=== PATIENT | female | born 1995 | race Caucasian/White ===

== ENCOUNTER 2016-07-24 17:12 | Outpatient (CLI) | payer OTHER ==
[2016-07-24] MEDS: NIFEdipine 10 MG CAPSULE PO PRN ×2 (19:17→20:17)
== END 2016-07-24 20:20 | disposition home or self-care (01) ==
DX: O47.03 False labor before 37 completed weeks of gestation, third trimester (principal); O99.89 Other specified diseases and conditions complicating pregnancy, childbirth and the puerperium; N30.10 Interstitial cystitis (chronic) without hematuria; Z3A.30 30 weeks gestation of pregnancy
CPT/HCPCS: 81001; 99214; A9270

== ENCOUNTER 2016-08-18 08:57 | Outpatient (CLI) | payer OTHER ==
[2016-08-18] MEDS ORDERED: TERBUTALINE 1 MG/ML VIAL SUBQ ONE ×2 (09:22→09:30)
[2016-08-18] MEDS ORDERED: NIFEdipine ER 30 MG TABLET PO ONE (11:00)
== END 2016-08-18 11:50 | disposition home or self-care (01) ==
DX: O23.13 Infections of bladder in pregnancy, third trimester (principal); Z3A.33 33 weeks gestation of pregnancy
CPT/HCPCS: 81001; 82731; 87086; 87797; 96372; 99214; A9270

== ENCOUNTER 2017-09-18 08:00 | Outpatient (CLI) | payer OTHER ==
[2017-09-18 19:34] LABS: BASOPHILS % (AUTO) 0.7 %; EOSINOPHILS # (AUTO) 0.3 10^3/uL (0.0-0.7); EOSINOPHILS % (AUTO) 4.7 %; MEAN CORPUSCULAR HEMOGLOBIN 33.1 pg (27.0-31.0); MEAN CORPUSCULAR HGB CONC 32.7 g/dL (32.0-36.0); MEAN CORPUSCULAR VOLUME 101.3 fL (81.0-99.0); MEAN PLATELET VOLUME 8.8 fL (7.9-10.8); MONOCYTES # (AUTO) 0.5 10^3/uL (0.0-1.0); MONOCYTES % (AUTO) 7.6 %; NEUTROPHILS # (AUTO) 3.5 10^3/uL (1.5-6.6); PLT - PLATELET COUNT 222 10^3/uL (130-450); RED BLOOD COUNT 3.92 10^6/uL (4.20-5.40); RED CELL DISTRIBUTION WIDTH 11.9 % (12.0-15.0); WHITE BLOOD COUNT 6.3 x10^3/uL (4.8-10.8)
== END 2017-09-18 08:01 | disposition home or self-care (01) ==
LOC: LAB.WCP 08:00
PROVIDERS: ATTEND Physician Assistant
DX: R53.83 Other fatigue (principal)
CPT/HCPCS: 36415; 84443; 85025

== ENCOUNTER 2017-09-30 08:30 | Outpatient (CLI) | payer OTHER ==
--- NOTE | 2017-10-01 04:03 | Ultrasound Report ---
EXAM: PELVIC ULTRASOUND EXAM DATE: 09/30/2017 08:40 AM. CLINICAL HISTORY: PELVIC PAIN, LEFT. COMPARISON: 02/24/2011. TECHNIQUE: Realtime transabdominal pelvic scan performed to identify the uterus and adnexa and as an overview of other pelvic structures, followed by transvaginal scan to provide greater detail of the u terus and adnexa, with static image documentation. FINDINGS: Uterus: 8 x 3 x 4 cm, volume 50 cc. Anteverted position. Normal overall size and echotexture. Masses: None. Endometrium: 2 mm. Normal with IUD in place. Cervix: Unremarkable. Right Ovary: Volume 8 cc. Normal echotexture and blood flow. Left Ovary: Volume 5 cc. Normal echotexture and blood flow. Free Fluid: None. Other: None. IMPRESSION: Negative pelvic ultrasound. [facility] Referring Provider Line: [phone] SITE ID: [id number]
== END 2017-09-30 08:31 | disposition home or self-care (01) ==
LOC: DI 08:30
PROVIDERS: ATTEND Physician Assistant
DX: R10.2 Pelvic and perineal pain (principal)
CPT/HCPCS: 76830; 76856

== ENCOUNTER 2017-12-22 10:41 | Outpatient (CLI) | payer OTHER ==
[2017-12-22 14:22] LABS: THYROID STIMULATING HORMONE 0.59 uIU/mL (0.34-5.60)
[2017-12-22 14:24] LABS: FREE T4 (FREE THYROXINE) 0.67 ng/dL (0.58-1.64)
== END 2017-12-22 10:42 | disposition home or self-care (01) ==
LOC: LAB 10:41
PROVIDERS: ATTEND Obstetrics & Gynecology
DX: N91.2 Amenorrhea, unspecified (principal); R68.82 Decreased libido
CPT/HCPCS: 36415; 81599; 84402; 84403; 84439; 84443; 84481; 84702; 84703

== ENCOUNTER 2018-05-01 16:30 | Outpatient (CLI) | payer OTHER | END 2018-05-01 16:31 | disposition critical access hospital (66) | LOC: EMS 16:30 | PROVIDERS: ATTEND Surgery | DX: R55 Syncope and collapse (principal); R00.2 Palpitations; R07.9 Chest pain, unspecified | CPT/HCPCS: A0425; A0429 ==

== ENCOUNTER 2018-05-01 16:50 | Emergency (ER) | payer OTHER ==
--- NOTE | 2018-05-01 17:11 | ED Physician Documentation ---
History of Present Illness - Stated complaint Stated Complaint: NEAR SYNCOPE - Chief complaint Chief Complaint: Cardiac - History obtained from History obtained from: Patient, EMS - History of Present Illness Timing: How many weeks ago (1) Pain level max: 0 Pain level now: 0 - Additonal information Additional information: Patient is a 22-year-old female who presents to the emergency department stating that she has had substernal chest pain for the past week. It is described as constant. Worse with breathing, nothing makes it better. Was seen at [facility] for the same and told to follow-up with her doctor. At her doctor's office today, she is found to be tachycardic and not feeling well so they called the ambulance to send her here. She states that she still has the pain and that nothing has helped. Denies any fevers. Does have a slight cough. She is not , breast-feeding or trying to become . 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 HEENT: None Psych: Anxiety, Panic attacks Musculoskeletal: Fatigue Derm: None - Past Surgical History Past Surgical History: Yes - Present Medications Home Medications: Ambulatory Orders Medication Instructions Recorded Confirmed Alprazolam [Alprazolam Odt] 0.25 mg PO BID PRN 11/02/12 06/21/15 Control 1 tab ORAL DAILY 03/31/13 06/21/15 buPROPion [Wellbutrin Xl] 150 mg PO DAILY 11/24/14 06/21/15 Doxycycline Hyclate 100 mg PO BID #20 capsule 05/01/18 Escitalopram [Lexapro] 05/01/18 Hydrocodone/Acetaminophen 1 - 2 each PO Q6H PRN #10 tablet 05/01/18 [Hydrocodon-Acetaminophen 5-325] Methylphenidate HCl [Ritalin] 05/01/18 - Allergies Allergies/Adverse Reactions: Allergies Allergy/AdvReac Type Severity Reaction Status Date / Time amoxicillin [Amoxicillin] Allergy Unknown UNKNOWN Verified 05/01/18 16:56 Sulfa (Sulfonamide Allergy Unknown UNKNOWN Verified 05/01/18 16:56 Antibiotics) ciprofloxacin Allergy Hives Verified 05/01/18 16:56 - Social History Does the pt smoke?: No Smoking Status: Never smoker Does the pt drink ETOH?: No Does the pt have substance abuse?: No - Immunizations Immunizations are current?: Yes - POLST Patient has POLST: No PD ED PE NORMAL - Vitals Vital signs reviewed: Yes - General General: Alert and oriented X 3, No acute distress - HEENT HEENT: Ears normal, Moist mucous membranes, Pharynx benign - Neck Neck: Supple, no meningeal sign - Cardiac Cardiac: RRR, No murmur, No gallop, No rub, Strong equal pulses - Respiratory Respiratory: No respiratory distress, Clear bilaterally - Abdomen Abdomen: Soft, Non tender, Non distended - Back Back: No spinal TTP - Derm Derm: Warm and dry - Extremities Extremities: No edema, No calf tenderness / cord - Neuro Neuro: Alert and oriented X 3 Results - Vitals Vitals: Vital Signs - 24 hr 05/01/18 05/01/18 05/01/18 16:50 18:00 18:59 Temperature 37.2 C Heart Rate 110 H 121 H 114 H Respiratory 18 17 18 Rate Blood Pressure 151/101 H 144/87 H 150/102 H O2 Saturation 100 100 100 05/01/18 19:08 Temperature 36.9 C Heart Rate Respiratory Rate Blood Pressure O2 Saturation Oxygen O2 Source Room air - EKG (time done) 1701 Rate: Rate (enter#) (117) Rhythm: Sinus tachycardia [place]: Normal Intervals: Normal [place] QRS: Normal Ischemia: Normal ST segments - Labs Labs: Laboratory Tests 05/01/18 05/01/18 05/01/18 15:14 15:14 15:14 WBC 7.1 RBC 3.91 L Hgb 13.2 Hct 38.4 MCV 98.3 MCH 33.7 H MCHC 34.3 RDW 12.1 Plt Count 282 MPV 8.0 Neut # (Auto) 4.3 Lymph # (Auto) 2.2 [place] # (Auto) 0.5 Eos # (Auto) 0.1 Baso # (Auto) 0.1 Absolute Nucleated RBC 0.01 Nucleated RBC % 0.1 Sodium 135 Potassium 3.5 Chloride 103 Carbon Dioxide 22 Anion Gap 10.0 BUN 14 Creatinine 0.6 Estimated GFR (MDRD) 126 Glucose 93 Calcium 9.3 Total Bilirubin 0.4 AST 23 ALT 24 Alkaline Phosphatase 87 Troponin I < 0.04 Total Protein 8.1 Albumin 4.3 Globulin 3.8 Albumin/Globulin Ratio 1.1 Lipase 32 Urine Color Urine Clarity Urine pH Ur Specific [place] Urine Protein Urine Glucose (UA) Urine Ketones Urine Occult Blood Urine Nitrite Urine Bilirubin Urine Urobilinogen Ur Leukocyte Esterase Ur Microscopic Review Urine Culture Comments Urine HCG, Qual 05/01/18 19:10 WBC RBC Hgb Hct MCV MCH MCHC RDW Plt Count MPV Neut # (Auto) Lymph # (Auto) [place] # (Auto) Eos # (Auto) Baso # (Auto) Absolute Nucleated RBC Nucleated RBC % Sodium Potassium Chloride Carbon Dioxide Anion Gap BUN Creatinine Estimated GFR (MDRD) Glucose Calcium Total Bilirubin AST ALT Alkaline Phosphatase Troponin I Total Protein Albumin Globulin Albumin/Globulin Ratio Lipase Urine Color YELLOW Urine Clarity CLEAR Urine pH 7.0 Ur Specific [place] 1.010 Urine Protein NEGATIVE Urine Glucose (UA) NEGATIVE Urine Ketones NEGATIVE Urine Occult Blood NEGATIVE Urine Nitrite NEGATIVE Urine Bilirubin NEGATIVE Urine Urobilinogen 0.2 (NORMAL) Ur Leukocyte Esterase NEGATIVE Ur Microscopic Review NOT INDICATED Urine Culture Comments NOT INDICATED Urine HCG, Qual NEGATIVE - Rads (name of study) CT pulmonary angiogram Radiology: Prelim report reviewed, EMP read contemporaneously, See rad report (Negative for pulmonary embolism. Unremarkable aorta. Right middle lobe infiltrate) PD MEDICAL DECISION MAKING - ED course Complexity details: reviewed results, re-evaluated patient, considered differential, d/w patient, d/w family ED course: Patient is a 22-year-old female who presents to the emergency department with chest pain for the past week. She has been worked up for cardiac issues at [facility] Last week. Given her unexplained tachycardia and continued chest pain, CT pulmonary angiogram was undertaken which reveals a right middle lobe infiltrate that was not visible on prior chest x-rays. Will place her on antibiotics and follow-up with her doctor. She is well-appearing, nontoxic. Afebrile. No hypoxia. No respiratory distress. Patient and family counseled regarding signs and symptoms for which I believe and urgent re-evaluation would be necessary. Patient with good understanding of and agreement to plan and is comfortable going home at this time This document was made in part using voice recognition software. While efforts are made to proofread this document, sound alike and grammatical errors may occur. Departure - Departure Disposition: 01 Home, Self Care Clinical Impression: Pneumonia Qualifiers: Pneumonia type: due to unspecified organism Laterality: right Lung location: middle lobe of lung Qualified Code(s): J18.1 - Lobar pneumonia, unspecified organism Condition: Good Instructions: ED Pneumonia Adult Follow-Up: Isela Celestin PA [Primary Care Provider] - Within 1 week Prescriptions: Doxycycline Hyclate 100 mg PO BID #20 capsule Hydrocodone/Acetaminophen [Hydrocodon-Acetaminophen 5-325] 1 - 2 each PO Q6H PRN #10 tablet PRN Reason: pain Comments: Return if you worsen. take all anitbiotics until gone. Do not drink alcohol or drive while on narcotic pain medicine. Note that many narcotic pain relievers also contain tylenol/acetaminophen. Please ensure that your total dose of acetaminophen from all sources does not exceed 3 grams (3000mg) per day. You may constipated on this medication, take a stool softener such as "Colace" twice a day while you are on it. Also recommend a qiji-awd-sxjgegm laxative such as senna or MiraLAX any day that you do not have a bowel movement. If you received narcotic pain medication in the emergency department, do not drive or operate machinery for the next 24 hours. Discharge Date/Time: 05/01/18 19:21
[2018-05-01 17:24] LABS: BASOPHILS # (AUTO) 0.1 10^3/uL (0.0-0.1); BASOPHILS % (AUTO) 0.7 %; EOSINOPHILS # (AUTO) 0.1 10^3/uL (0.0-0.7); EOSINOPHILS % (AUTO) 1.5 %; HGB - HEMOGLOBIN 13.2 g/dL (12.0-16.0); LYMPHOCYTES # (AUTO) 2.2 10^3/uL (1.5-3.5); LYMPHOCYTES % (AUTO) 30.7 %; MEAN CORPUSCULAR HEMOGLOBIN 33.7 pg (27.0-31.0); MEAN CORPUSCULAR HGB CONC 34.3 g/dL (32.0-36.0); MEAN CORPUSCULAR VOLUME 98.3 fL (81.0-99.0); MONOCYTES # (AUTO) 0.5 10^3/uL (0.0-1.0); MONOCYTES % (AUTO) 6.8 %; NEUTROPHILS # (AUTO) 4.3 10^3/uL (1.5-6.6); NEUTROPHILS % (AUTO) 60.3 %; PLT - PLATELET COUNT 282 10^3/uL (130-450); RED BLOOD COUNT 3.91 10^6/uL (4.20-5.40); RED CELL DISTRIBUTION WIDTH 12.1 % (12.0-15.0); WHITE BLOOD COUNT 7.1 x10^3/uL (4.8-10.8)
[2018-05-01] MEDS ORDERED: IOPAMIDOL-300 100 ML VIAL ONE (17:27)
[2018-05-01 17:31] LABS: ALBUMIN 4.3 g/dL (3.2-5.5); ALBUMIN/GLOBULIN RATIO 1.1 (1.0-2.2); BILIRUBIN,TOTAL 0.4 mg/dL (0.2-1.0); CALCIUM 9.3 mg/dL (8.5-10.3); CREATININE 0.6 mg/dL (0.4-1.0); TOTAL PROTEIN 8.1 g/dL (6.7-8.2)
[2018-05-01] MEDS ORDERED: IOPAMIDOL-300 100 ML VIAL IVP ONE (18:10)
--- NOTE | 2018-05-01 18:22 | CT Report ---
Reason: chest pain, tachycardia Procedure Date: 05/01/2018 Accession Number: [id number] / [id number] Procedure: CT - Chest Angio (PE) CPT Code: FULL RESULT: EXAM: CT ANGIOGRAM CHEST EXAM DATE: 05/01/2018 06:05 PM. CLINICAL HISTORY: Chest pain, tachycardia. COMPARISON: None. TECHNIQUE: Routine helical imaging was performed through the chest in the pulmonary arterial phase. IV Contrast: 80 ML ISOVUE 300. Reconstructions: Sagittal, coronal, and 3D MIP. In accordance with CT protocol optimization, one or more of the following dose reduction techniques were utilized for this exam: automated exposure control, adjustment of mA and/or KV based on patient size, or use of iterative reconstructive technique. FINDINGS: Pulmonary Arteries: Diagnostic quality: Adequate through the segmental arteries. No evidence for acute or chronic pulmonary emboli. RV/LV is within normal limits. There is no interventricular septal bowing. There is no reflux of contrast material in the IVC. Lungs/Pleura: Patchy somewhat nodular infiltration in the right middle lobe with associated bronchiectasis and mild peribronchial thickening. Otherwise clear. No consolidation, effusion, or pneumothorax. Mediastinum: Normal heart size. No pericardial effusion. No coronary artery calcifications. No lymphadenopathy. Thoracic Aorta: Unremarkable. Upper Abdomen: Unremarkable. Other: None. IMPRESSION: 1. Negative for pulmonary embolism at this time. Unremarkable aorta. 2. Right middle lobe infiltrate. [facility]
[2018-05-01] MEDS ORDERED: DOXYCYCLINE 100 MG TABLET PO STA (18:44)
[2018-05-01] MEDS ORDERED: HYDROcod/ACETAM 5/325 MG TABLET PO STA (18:52)
[2018-05-01 19:01] VITALS: BP 150/102
[2018-05-01 19:21] LABS: BILIRUBIN,URINE NEGATIVE (NEGATIVE); GLUCOSE, URINE (UA) NEGATIVE (NEGATIVE); KETONES,URINE (UA) NEGATIVE (NEGATIVE); LEUKOCYTE ESTERASE, URINE NEGATIVE (NEGATIVE); NITRITE,URINE NEGATIVE (NEGATIVE); OCCULT BLOOD,URINE NEGATIVE (NEGATIVE); PROTEIN,URINE NEGATIVE (NEGATIVE); UROBILINOGEN,URINE 0.2 (NORMAL) E.U./dL (NORMAL)
[2018-05-01 19:26] LABS: CLARITY,URINE CLEAR (CLEAR); HCG UR QUAL NEGATIVE
== END 2018-05-01 19:21 | disposition home or self-care (01) ==
LOC: EDUNIT# → ED 16:50
DX: J18.1 Lobar pneumonia, unspecified organism (principal)
CPT/HCPCS: 36415; 71275; 80053; 81003; 81025; 83690; 84484; 85025; 93005; 99283; 99284; A9270; Q9967; 81001; 87086

== ENCOUNTER 2018-07-05 12:45 | Emergency (ER) | payer OTHER ==
[2018-07-05 13:22] LABS: BASOPHILS % (AUTO) 0.4 %; EOSINOPHILS # (AUTO) 0.1 10^3/uL (0.0-0.7); EOSINOPHILS % (AUTO) 0.7 %; HGB - HEMOGLOBIN 13.3 g/dL (12.0-16.0); LYMPHOCYTES # (AUTO) 1.8 10^3/uL (1.5-3.5); LYMPHOCYTES % (AUTO) 24.2 %; MEAN CORPUSCULAR HEMOGLOBIN 34.4 pg (27.0-31.0); MEAN CORPUSCULAR HGB CONC 34.6 g/dL (32.0-36.0); MEAN CORPUSCULAR VOLUME 99.4 fL (81.0-99.0); MEAN PLATELET VOLUME 7.8 fL (7.9-10.8); MONOCYTES # (AUTO) 0.4 10^3/uL (0.0-1.0); MONOCYTES % (AUTO) 4.8 %; NEUTROPHILS # (AUTO) 5.3 10^3/uL (1.5-6.6); NEUTROPHILS % (AUTO) 69.9 %; PLT - PLATELET COUNT 294 10^3/uL (130-450); RED BLOOD COUNT 3.88 10^6/uL (4.20-5.40); RED CELL DISTRIBUTION WIDTH 12.9 % (12.0-15.0); WHITE BLOOD COUNT 7.5 x10^3/uL (4.8-10.8)
[2018-07-05 13:37] LABS: ALBUMIN 4.6 g/dL (3.2-5.5); ALBUMIN/GLOBULIN RATIO 1.2 (1.0-2.2); BILIRUBIN,TOTAL 0.9 mg/dL (0.2-1.0); CALCIUM 9.6 mg/dL (8.5-10.3); CREATININE 0.5 mg/dL (0.4-1.0); TOTAL PROTEIN 8.3 g/dL (6.7-8.2)
[2018-07-05 14:56] LABS: HCG,QUALITATIVE BLOOD NEGATIVE
[2018-07-05] MEDS ORDERED: IBUPROFEN 400 MG TABLET PO STA (15:05)
[2018-07-05] MEDS ORDERED: oxyCODONE 5 MG TABLET PO STA ×2 (15:05→16:38)
[2018-07-05] MEDS ORDERED: LORazepam 0.5 MG TABLET PO STA (15:08)
--- NOTE | 2018-07-05 15:09 | ED Physician Documentation ---
History of Present Illness - Stated complaint Stated Complaint: FEMALE /BLEEDING - Chief complaint Chief Complaint: Abd Pain - Additonal information Additional information: hx from pt 23 f on OCP (on this one for a year) 10 days of havy vag bleed - changing tampon and pad q1h pelvic pain no injury - did not start during intercourse no fever Review of Systems Constitutional: denies: Fever, Chills Cardiac: denies: Chest pain / pressure Respiratory: denies: Dyspnea : reports: Vaginal bleeding Endocrine: denies: Easy bruising / bleeding Immunocompromised: denies: Immunocompromised PD PAST MEDICAL HISTORY - Past Medical History Cardiovascular: None Respiratory: None Endocrine/Autoimmune: None GI: None 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 HEENT: None Psych: Anxiety, Panic attacks Musculoskeletal: Fatigue Derm: None - Past Surgical History Past Surgical History: Yes - Present Medications Home Medications: Ambulatory Orders Medication Instructions Recorded Confirmed Alprazolam [Alprazolam Odt] 0.25 mg PO BID PRN 11/02/12 06/21/15 Control 1 tab ORAL DAILY 03/31/13 06/21/15 buPROPion [Wellbutrin Xl] 150 mg PO DAILY 11/24/14 06/21/15 Escitalopram [Lexapro] 05/01/18 Methylphenidate HCl [Ritalin] 05/01/18 Cyclobenzaprine [Flexeril] 10 mg PO TID PRN #20 tablet 07/05/18 Indomethacin [Indocin] 25 mg PO TIDWM PRN #21 capsule 07/05/18 - Allergies Allergies/Adverse Reactions: Allergies Allergy/AdvReac Type Severity Reaction Status Date / Time amoxicillin [Amoxicillin] Allergy Unknown UNKNOWN Verified 05/01/18 16:56 Sulfa (Sulfonamide Allergy Unknown UNKNOWN Verified 05/01/18 16:56 Antibiotics) ciprofloxacin Allergy Hives Verified 05/01/18 16:56 - Social History Does the pt smoke?: No Smoking Status: Never smoker Does the pt drink ETOH?: No Does the pt have substance abuse?: No - Immunizations Immunizations are current?: Yes - POLST Patient has POLST: No PD ED PE NORMAL - Vitals Vital signs reviewed: Yes - Neck Neck: Supple, no meningeal sign - Cardiac Cardiac: RRR - Respiratory Respiratory: No respiratory distress - Abdomen Abdomen: Soft, Other (mod TTP suprapubic) - Female 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[place]), Other (no external lesion, no discharge, dark blood from os, no discharge, no FB, unabkle to tolerate bimanual despite pain meds) Results - Vitals Vitals: Vital Signs - 24 hr 07/05/18 12:57 Temperature 36.3 C L Heart Rate 110 H Respiratory 16 Rate Blood Pressure 151/95 H O2 Saturation 100 Oxygen O2 Source Room air - Labs Labs: Laboratory Tests 07/05/18 07/05/18 07/05/18 13:17 13:17 13:17 WBC 7.5 RBC 3.88 L Hgb 13.3 Hct 38.5 MCV 99.4 H MCH 34.4 H MCHC 34.6 RDW 12.9 Plt Count 294 MPV 7.8 L Neut # (Auto) 5.3 Lymph # (Auto) 1.8 [place] # (Auto) 0.4 Eos # (Auto) 0.1 Baso # (Auto) 0.0 Absolute Nucleated RBC 0.00 Nucleated RBC % 0.0 Sodium 133 L Potassium 3.7 Chloride 100 L Carbon Dioxide 24 Anion Gap 9.0 BUN 10 Creatinine 0.5 Estimated GFR (MDRD) 154 Glucose 108 H Calcium 9.6 Total Bilirubin 0.9 AST 29 ALT 30 Alkaline Phosphatase 76 Total Protein 8.3 H Albumin 4.6 Globulin 3.7 Albumin/Globulin Ratio 1.2 Lipase 34 Serum HCG, Qual NEGATIVE - Rads (name of study) pelvic ultrasound Radiology: See rad report (nl ovaries, no mass, complex fluid collection in uterus - per rad compatible with hx of current bleeding) PD MEDICAL DECISION MAKING - ED course ED course: not - on OCP and neg HCG no masses on sono oin injury / vag lac dark blood from os on exam endometrtial blood otherwsie nl sono nl VS and labs will dc on NSAIDs with ROVING 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 fup - if continues might need endometrial biopsy or high dose OCPs etc but for tonight think safe to dc home Departure - Departure Disposition: 01 Home, Self Care Clinical Impression: Dysfunctional uterine bleeding Condition: Good Instructions: ED Bleed Irregular Vaginal Follow-Up: Arlyn Pack DO [Provider Admit Priv/Credential] - Prescriptions: Cyclobenzaprine [Flexeril] 10 mg PO TID PRN #20 tablet PRN Reason: Spasms Indomethacin [Indocin] 25 mg PO TIDWM PRN #21 capsule PRN Reason: Pain Comments: The test was negative Your blood count is fine - you have not lost too much blood The ultrasound shows blood in the endometrial cavity but no tumors or fibroids The exam did not suggest an infection but cultures are running and the ER staff will call you if antibiotics are needed I think it is safe for you to go home. I recommend indocin or the pain Can also try a muscle relaxant such as flexeril for uterine cramping Please call Dr Pack tomorrow for follow up. If the symptoms do not subside with the indocin you may need to take high dose control pills or have an endometrial biopsy. Forms: Activity restrictions
[2018-07-05] MEDS ORDERED: PROMETHAZINE 25 MG TABLET PO STA ×2 (15:18→16:38)
--- NOTE | 2018-07-05 19:21 | Ultrasound Report ---
Reason: PELVIC PAIN, BLEEDING Procedure Date: 07/05/2018 Accession Number: [id number] / [id number] Procedure: US - Pelvic w/Doppler Complete CPT Code: FULL RESULT: EXAM: PELVIC ULTRASOUND EXAM DATE: 07/05/2018 06:55 PM. CLINICAL HISTORY: PELVIC PAIN, BLEEDING. COMPARISON: None. TECHNIQUE: Realtime transabdominal pelvic scan performed to identify the uterus and adnexa and as an overview of other pelvic structures, with static image documentation. FINDINGS: Uterus: 6.1 x 5.1 x 3.9 cm, volume 63.1 cc. Anteverted position. Normal overall size and echotexture. Masses: None. Endometrium: 10.4 mm. Complex fluid collection in the endometrial cavity measuring about 2.0 x 1.8 x 1.0 cm. Cervix: Unremarkable. Right Ovary: 2.8 x 2.0 x 1.4 cm, volume 4.1 cc. Normal echotexture and blood flow. Left Ovary: 2.7 x 2.0 x 1.2 cm, volume 3.4 cc. Normal echotexture and blood flow. Free Fluid: None. Other: None. IMPRESSION: Endometrial findings compatible with current bleeding. Otherwise unremarkable. [facility]
[2018-07-05 20:00] VITALS: BP 140/90
== END 2018-07-05 20:00 | disposition home or self-care (01) ==
LOC: ED 12:45
DX: N93.8 Other specified abnormal uterine and vaginal bleeding (principal)
CPT/HCPCS: 36415; 76856; 80053; 83690; 84703; 85025; 87491; 87591; 93975; 99283; A9270; Q0169; 81025

== ENCOUNTER 2018-08-13 11:23 | Outpatient (CLI) | payer OTHER ==
[2018-08-13 19:04] LABS: BASOPHILS % (AUTO) 0.6 %; EOSINOPHILS # (AUTO) 0.1 10^3/uL (0.0-0.7); EOSINOPHILS % (AUTO) 1.9 %; HGB - HEMOGLOBIN 13.3 g/dL (12.0-16.0); LYMPHOCYTES % (AUTO) 30.9 %; MEAN CORPUSCULAR HEMOGLOBIN 34.2 pg (27.0-31.0); MEAN CORPUSCULAR HGB CONC 32.6 g/dL (32.0-36.0); MEAN CORPUSCULAR VOLUME 105.1 fL (81.0-99.0); MEAN PLATELET VOLUME 8.3 fL (7.9-10.8); MONOCYTES # (AUTO) 0.3 10^3/uL (0.0-1.0); MONOCYTES % (AUTO) 5.1 %; NEUTROPHILS % (AUTO) 61.5 %; PLT - PLATELET COUNT 271 10^3/uL (130-450); RED CELL DISTRIBUTION WIDTH 12.3 % (12.0-15.0); WHITE BLOOD COUNT 6.5 x10^3/uL (4.8-10.8)
== END 2018-08-13 23:59 | disposition home or self-care (01) ==
LOC: LAB.N 11:23
PROVIDERS: ATTEND Obstetrics & Gynecology
DX: Z01.818 Encounter for other preprocedural examination (principal)
CPT/HCPCS: 36415; 81025; 85025

== ENCOUNTER 2018-08-15 08:58 | Day surgery (SDC) | payer OTHER ==
[2018-08-15 09:13] LABS: HCG UR QUAL NEGATIVE
[2018-08-15] MEDS ORDERED: CLINDAMYCIN 600 MG/50 ML 50 ML IV ONE (09:25)
[2018-08-15] MEDS ORDERED: CELECOXIB 100 MG CAPSULE PO ONE (09:25)
[2018-08-15] MEDS ORDERED: LACTATED RINGERS 1,000 ML IV ONE (09:31)
--- NOTE | 2018-08-15 09:39 | ANESTHESIA PROCEDURE NOTE ---
Diagnosis: anxiety Procedure: IUD insertion, pap smear Height and Weight: Height 5 ft 3 in Weight (kg) 49.1 kg Body Mass Index 22.6 Vital Signs: Temp Pulse Resp BP Pulse Ox 36.6 C 62 20 100 08/15/18 09:02 08/15/18 09:02 08/15/18 09:02 08/15/18 09:02 Allergies Sulfa (Sulfonamide Antibiotics) Allergy (Unknown, Verified 08/01/18 11:02) Hives ciprofloxacin Allergy (Verified 05/01/18 16:56) Hives
--- NOTE | 2018-08-15 09:42 | ANESTHESIA ---
Pre-Anesthesia VS, & Labs - Diagnosis anxiety - Procedure IUD insertion, pap smear Vital Signs: Temp Pulse Resp BP Pulse Ox 36.6 C 62 20 100 08/15/18 09:02 08/15/18 09:02 08/15/18 09:02 08/15/18 09:02 Height 5 ft 3 in Weight (kg) 49.1 kg Body Mass Index 22.6 - NPO >8 hours - Is Patient ?: No Home Medications and Allergies Home Medications: Ambulatory Orders Levonorgestrel-Ethin Estradiol [Vienva-28 Tablet] 1 each PO DAILY 08/01/18 Alprazolam [Alprazolam Odt] 0.5 mg PO BID PRN 11/02/12 buPROPion [Wellbutrin Xl] 200 mg PO DAILY 11/24/14 Methylphenidate HCl [Ritalin] 5 mg PO TID PRN 05/01/18 Levonorgestrel-Ethin Estradiol [Vienva-28 Tablet] 1 each PO DAILY 08/01/18 Allergies/Adverse Reactions: Allergies Allergy/AdvReac Type Severity Reaction Status Date / Time Sulfa (Sulfonamide Allergy Unknown Hives Verified 08/01/18 11:02 Antibiotics) ciprofloxacin Allergy Hives Verified 05/01/18 16:56 Anes History & Medical History - Anesthetic History Anesthesia Complications: reports: No previous complications - Medical History Cardiovascular: reports: None Pulmonary: reports: None Gastrointestinal: reports: None, Other Urinary: reports: None Musculoskeletal: reports: None Endocrine/Autoimmune: reports: None Blood Disorders: reports: None Skin: reports: None Smoking Status: Never smoker - Surgical History General: Colonoscopy, EGD Gynecologic: Other (diagnostic laparoscopy) Exam General: Alert Dental: WNL Mouth Opening: Greater than 4 Fingerbreadths Neck Mobility: Normal Mallampati classification: I Thyromental Distance: greater than 6 cm Respiratory: Lungs clear Cardiovascular: Regular rate, Normal S1, Normal S2 Plan Anesthesia Type: MAC Consent for Procedure(s) Verified and Reviewed: Yes Code Status: Attempt Resuscitation ASA classification: 1-Healthy patient Is this case an emergency?: No
[2018-08-15] MEDS ORDERED: BUPIVACAINE 0.25%-EPI 1:200000 PF 30 ML VIAL ONE (11:44)
[2018-08-15] MEDS ORDERED: BUPIVACAINE 0.25%-EPI 1:200000 PF 30 ML VIAL SUBQ ONE (12:00)
[2018-08-15] MEDS ORDERED: KETOROLAC 30 MG/ML VIAL IVP ONE (12:17)
[2018-08-15] MEDS ORDERED: ONDANSETRON 4 MG/2 ML VIAL IVP ONE (12:17)
[2018-08-15] MEDS ORDERED: PROPOFOL 1000 MG/100 ML IV ONE (12:17)
[2018-08-15] MEDS ORDERED: MIDAZOLAM 2 MG/2 ML VIAL IVP ONE (12:17)
[2018-08-15] MEDS ORDERED: LORazepam 2 MG/ML VIAL IVP PRN (12:23)
[2018-08-15] MEDS ORDERED: LEVONORGESTREL 1 EACH IUD IY ONE (12:23)
[2018-08-15] MEDS ORDERED: HYDROmorphone 0.5 MG/0.5 ML SYRINGE IVP PRN (12:23)
[2018-08-15] MEDS ORDERED: HYDROcod/ACETAM 10 MG/325 MG TABLET PO PRN (12:23)
[2018-08-15] MEDS ORDERED: ONDANSETRON 4 MG/2 ML VIAL IVP PRN (12:23)
[2018-08-15] MEDS ORDERED: HYDROcod/ACETAM 5/325 MG TABLET ONE (12:24)
--- NOTE | 2018-08-15 12:26 | OPERATIVE REPORT ---
Operative Report - General Procedure Date: 08/15/18 Planned Procedure: Pap, Mirena Placement Pre-Op Diagnosis: Sever Anxiouity, Contraception, needs pap. Procedure Performed: Pap, Mirena Placement Post Op Diagnosis: Same - Procedure Note Primary Surgeon: Emery Burr MD Anesthesia Provider: Nadeem Piña Anesthesia Technique: MAC, Other (Para cervical) Pathology: Pap smear IV Fluids (mL): 800 Estimated Blood Loss (mL): 0 Urine Output (mL): 0
[2018-08-15 12:52] VITALS: BP 123/79
--- NOTE | 2018-08-15 15:22 | PROCEDURE REPORT ---
DATE OF SERVICE: 08/15/2018 Physician: Emery Burr MD PREOPERATIVE DIAGNOSES 1. Severe anxiety. 2. Contraception. 3. Need for Pap smear. POSTOPERATIVE DIAGNOSES 1. Severe anxiety. 2. Contraception. 3. Need for Pap smear. PROCEDURES PERFORMED: Pap smear and placement of Mirena IUD. SURGEON: Emery Burr MD ANESTHESIA: IV sedation with paracervical block with Bethany Winkler CRNA PATHOLOGY: Pap smear. IV FLUIDS: 800 mL. ESTIMATED BLOOD LOSS: Zero. URINE OUTPUT: Zero. FINDINGS: Cervix resides high in the pelvic canal. The uterus was anteverted. It sounded to 8 cm. The ovaries appeared to be not enlarged. There was an area at the apex of the vagina, which showed some narrowing. PROCEDURE: Patient was anesthetized, placed in Efra stirrups. At this point, a timeout was performed. Patient was identified. Her concerns were addressed. A pelvic examination revealed the uterus was anterior, which was roughly 8-10 cm in size. At this point, a speculum was placed in the vagina, cervix visualized, Pap smear obtained. The cervix was then prepped with Betadine, and following this, a paracervical block was accomplished with a total of 10 mL of 0.25% Marcaine at both the left and right hand side. At this time, the uterus was sounded and noted to be anterior 8 cm in depth. The IUD was then set and placed without difficulty. Strings were trimmed a little bit long at 4 cm. The procedure was then terminated. Patient tolerated the procedure well and was taken to recovery in stable condition. Sponge and needle counts were correct. TD: 08/15/2018 14:07 [facility]
== END 2018-08-15 08:59 | disposition home or self-care (01) ==
LOC: SDS 08:58
PROVIDERS: ATTEND Obstetrics & Gynecology
PROC: 0UH97HZ Insertion of Contraceptive Device into Uterus, Via Natural or Artificial Opening (ICD-10-PCS; principal; 2018-08-15 10:00)
DX: Z30.430 Encounter for insertion of intrauterine contraceptive device (principal); Z12.4 Encounter for screening for malignant neoplasm of cervix; F41.9 Anxiety disorder, unspecified; R87.619 Unspecified abnormal cytological findings in specimens from cervix uteri
CPT/HCPCS: 58300; 81025; A9270; J7120; J7298

== ENCOUNTER 2018-09-05 21:09 | Emergency (ER) | payer OTHER ==
--- NOTE | 2018-09-05 21:26 | ED Physician Documentation ---
PD HPI CHEST PAIN - Stated complaint Stated Complaint: CP/NAUSEA - Chief complaint Chief Complaint: Cardiac - History obtained from History obtained from: Patient - History of Present Illness Timing - onset: Enter time (17:00), Today Timing - onset during: Light activity Timing - details: Abrupt onset Pain level now: 7 Quality: Pain Location: Right chest Radiation: Neck Improved by: Nothing Worsened by: Inspiration Associated symptoms: Cough (mild, nonproductive cough). No: Shortness of air, Diaphoresis, Nausea, Vomiting, Feeling faint / dizzy, General Weakness, Palpitations Similar symptoms before: Diagnosis (similar episode few months ago, diagnosed with pneumonia (was only visualized on CT, not CXR)) Recently seen: Not recently seen Review of Systems Constitutional: denies: Fever, Chills, Sweats Cardiac: reports: Chest pain / pressure. denies: Palpitations Respiratory: reports: Cough. 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 HEENT: Chronic vision loss Psych: Anxiety, Panic attacks Musculoskeletal: None Derm: None - Past Surgical History Past Surgical History: Yes General: Colonoscopy, EGD /ORACLE BUSINESS ANALYST: Other (diagnostic laparoscopy) - Present Medications Home Medications: Ambulatory Orders Medication Instructions Recorded Confirmed Alprazolam [Alprazolam Odt] 0.5 mg PO DAILY 11/02/12 09/05/18 buPROPion [Wellbutrin Xl] 200 mg PO DAILY 11/24/14 09/05/18 Methylphenidate HCl [Ritalin] 5 mg PO BID 05/01/18 09/05/18 Amox/Clav 875/125 [Augmentin 1 tab ORAL BID 09/05/18 09/05/18 875/125] Azithromycin [Zithromax] 250 mg PO DAILY #4 tablet 09/05/18 Estradiol 1 mg ORAL DAILY 09/05/18 09/05/18 - Allergies Allergies/Adverse Reactions: Allergies Allergy/AdvReac Type Severity Reaction Status Date / Time Sulfa (Sulfonamide Allergy Unknown Hives Verified 09/05/18 21:20 Antibiotics) ciprofloxacin Allergy Hives Verified 09/05/18 21:20 - Social History Does the pt smoke?: No Smoking Status: Never smoker Does the pt drink ETOH?: No Does the pt have substance abuse?: No - Immunizations Immunizations are current?: Yes - POLST Patient has POLST: No PD ED PE NORMAL - Vitals Vital signs reviewed: Yes - General General: Alert and oriented X 3, No acute distress, Well developed/nourished - HEENT HEENT: Moist mucous membranes - Cardiac Cardiac: No murmur, No gallop, No rub - Respiratory Respiratory: No respiratory distress, Clear bilaterally - Abdomen Abdomen: Soft, Non tender - Extremities Extremities: No edema PD ED PE EXPANDED - Cardiac Cardiac: Tachy Results - Vitals Vitals: Vital Signs - 24 hr 09/05/18 09/05/18 09/05/18 21:13 22:08 23:07 Temperature 36.4 C L Heart Rate 119 H 102 H 104 H Respiratory 16 18 16 Rate Blood Pressure 146/94 H 147/97 H 149/92 H O2 Saturation 100 100 100 09/05/18 23:59 Temperature 36.4 C L Heart Rate 89 Respiratory 18 Rate Blood Pressure 145/92 H O2 Saturation 99 Oxygen O2 Source Room air - EKG (time done) No standard instances Rate: Rate (enter#) (97) Rhythm: NSR [place]: Normal Intervals: Normal HI QRS: Normal Ischemia: Normal ST segments - Labs Labs: Laboratory Tests 09/05/18 09/05/18 09/05/18 21:40 21:40 21:40 WBC 6.4 RBC 4.06 L Hgb 14.0 Hct 40.5 MCV 99.9 H MCH 34.5 H MCHC 34.6 RDW 11.8 L Plt Count 248 MPV 7.9 Neut # (Auto) 3.0 Lymph # (Auto) 2.7 Major # (Auto) 0.4 Eos # (Auto) 0.2 Baso # (Auto) 0.0 Absolute Nucleated RBC 0.01 Nucleated RBC % 0.1 D-Dimer Sodium 137 Potassium 3.8 Chloride 101 Carbon Dioxide 25 Anion Gap 11.0 BUN 14 Creatinine 0.7 Estimated GFR (MDRD) 105 Glucose 89 Calcium 9.7 Troponin I < 0.04 09/05/18 21:40 WBC RBC Hgb Hct MCV MCH MCHC RDW Plt Count MPV Neut # (Auto) Lymph # (Auto) Major # (Auto) Eos # (Auto) Baso # (Auto) Absolute Nucleated RBC Nucleated RBC % D-Dimer < 200.0 L Sodium Potassium Chloride Carbon Dioxide Anion Gap BUN Creatinine Estimated GFR (MDRD) Glucose Calcium Troponin I - Rads (name of study) chest xray Radiology: Prelim report reviewed, See rad report PD MEDICAL DECISION MAKING - ED course Complexity details: reviewed old records, reviewed results, re-evaluated patient, considered differential, d/w patient ED course: Unremarkable w/u. Patient feels symptoms are similar to when she was diagnosed with pneumonia in April 2018; I reviewed the ED note (was actually 05/01) and it reflects right middle lobe infiltrate was seen on CT despite previously normal chest xray. While she lacks fever, cough, shortness of breath, her presentation is c/w pleurisy and early pneumonia could be a potential cause. She is already on augmentin for sinusitis (has had 5 days of this so far), and thus I recommended she discontinue the augmentin and start azithromycin (will provide good coverage for bacterial sinusitis as well as CAP). Departure - Departure Disposition: 01 Home, Self Care Clinical Impression: Pleurisy Condition: Good Instructions: ED Chest Pain Pleurisy Follow-Up: Isela Celestin PA [Primary Care Provider] - (2-3 days) Prescriptions: Azithromycin [Zithromax] 250 mg PO DAILY #4 tablet Discharge Date/Time: 09/06/18 00:07
[2018-09-05] MEDS ORDERED: KETOROLAC 30 MG/ML VIAL IVP STA (21:56)
[2018-09-05 22:06] LABS: BASOPHILS % (AUTO) 0.7 %; EOSINOPHILS # (AUTO) 0.2 10^3/uL (0.0-0.7); EOSINOPHILS % (AUTO) 2.8 %; LYMPHOCYTES # (AUTO) 2.7 10^3/uL (1.5-3.5); MEAN CORPUSCULAR HEMOGLOBIN 34.5 pg (27.0-31.0); MEAN CORPUSCULAR HGB CONC 34.6 g/dL (32.0-36.0); MEAN CORPUSCULAR VOLUME 99.9 fL (81.0-99.0); MEAN PLATELET VOLUME 7.9 fL (7.9-10.8); MONOCYTES # (AUTO) 0.4 10^3/uL (0.0-1.0); MONOCYTES % (AUTO) 5.9 %; NEUTROPHILS % (AUTO) 47.6 %; PLT - PLATELET COUNT 248 10^3/uL (130-450); RED BLOOD COUNT 4.06 10^6/uL (4.20-5.40); RED CELL DISTRIBUTION WIDTH 11.8 % (12.0-15.0); WHITE BLOOD COUNT 6.4 x10^3/uL (4.8-10.8)
[2018-09-05 22:23] LABS: CALCIUM 9.7 mg/dL (8.5-10.3); CREATININE 0.7 mg/dL (0.4-1.0)
--- NOTE | 2018-09-05 22:34 | XRAY Report ---
Reason: right chest pain Procedure Date: 09/05/2018 Accession Number: [id number] / [id number] Procedure: XR - Chest 2 View X-Ray CPT Code: 00674 FULL RESULT: EXAM: CHEST RADIOGRAPHY EXAM DATE: 09/05/2018 10:18 PM. CLINICAL HISTORY: Right chest pain. COMPARISON: None. TECHNIQUE: 2 views. FINDINGS: Lungs/Pleura: Clear. No effusion or pneumothorax. Mediastinum: Heart and mediastinal contours are unremarkable. Upper lobe vessels not distended. Other: None. IMPRESSION: Normal 2-view chest radiography. RADIA
[2018-09-05] MEDS ORDERED: AZITHROMYCIN 250 MG TABLET PO STA (23:53)
[2018-09-06 00:01] VITALS: BP 145/92
== END 2018-09-06 00:07 | disposition home or self-care (01) ==
LOC: ED 21:09
DX: R09.1 Pleurisy (principal)
CPT/HCPCS: 36415; 71046; 80048; 84484; 85025; 85379; 93005; 96374; 99283; A9270

== ENCOUNTER 2018-09-12 11:54 | Outpatient (CLI) | payer OTHER ==
[2018-09-12 19:16] LABS: BASOPHILS # (AUTO) 0.1 10^3/uL (0.0-0.1); BASOPHILS % (AUTO) 0.7 %; EOSINOPHILS # (AUTO) 0.1 10^3/uL (0.0-0.7); EOSINOPHILS % (AUTO) 1.7 %; HGB - HEMOGLOBIN 13.3 g/dL (12.0-16.0); LYMPHOCYTES # (AUTO) 2.5 10^3/uL (1.5-3.5); LYMPHOCYTES % (AUTO) 33.1 %; MEAN CORPUSCULAR HEMOGLOBIN 34.2 pg (27.0-31.0); MEAN CORPUSCULAR HGB CONC 33.4 g/dL (32.0-36.0); MEAN CORPUSCULAR VOLUME 102.5 fL (81.0-99.0); MEAN PLATELET VOLUME 8.7 fL (7.9-10.8); MONOCYTES # (AUTO) 0.4 10^3/uL (0.0-1.0); MONOCYTES % (AUTO) 5.6 %; NEUTROPHILS # (AUTO) 4.4 10^3/uL (1.5-6.6); NEUTROPHILS % (AUTO) 58.9 %; PLT - PLATELET COUNT 230 10^3/uL (130-450); WHITE BLOOD COUNT 7.4 x10^3/uL (4.8-10.8)
[2018-09-12 19:22] LABS: ALBUMIN 4.7 g/dL (3.2-5.5); ALBUMIN/GLOBULIN RATIO 1.4 (1.0-2.2); ALKALINE PHOSPHATASE 78 IU/L (42-121); ALT ALANINE AMINOTRANSFERASE 31 IU/L (10-60); AST ASPARTATE AMINOTRANSFERASE 31 IU/L (10-42); BILIRUBIN,TOTAL 0.8 mg/dL (0.2-1.0); BUN - BLOOD UREA NITROGEN 9 mg/dL (6-20); CALCIUM 9.7 mg/dL (8.5-10.3); CARBON DIOXIDE - CO2 24 mmol/L (21-32); CHLORIDE 103 mmol/L (101-111); CREATININE 0.5 mg/dL (0.4-1.0); GFR - MDRD 154 (>89); GLUCOSE 93 mg/dL (70-100); SODIUM 138 mmol/L (135-145); TOTAL PROTEIN 8.1 g/dL (6.7-8.2)
[2018-09-12 19:28] LABS: RHEUMATOID FACTOR NEGATIVE (Negative)
[2018-09-12 19:37] LABS: CRP - C-REACTIVE PROTEIN < 1.0 mg/dL (0-1.0)
== END 2018-09-12 11:55 | disposition home or self-care (01) ==
LOC: LAB.WCP 11:54
PROVIDERS: ATTEND Physician Assistant
DX: M79.643 Pain in unspecified hand (principal)
CPT/HCPCS: 36415; 80053; 84443; 85025; 85651; 86038; 86140; 86430

== ENCOUNTER 2018-10-03 21:58 | Outpatient (CLI) | payer OTHER ==
--- NOTE | 2018-10-04 09:25 | Ultrasound Report ---
Reason: RAYNAUD'S PHENOMENON Procedure Date: 10/03/2018 Accession Number: [id number] / [id number] Procedure: US - Ankle Brachial Index CPT Code: FULL RESULT: EXAM: BILATERAL ANKLE/BRACHIAL INDEX EXAM DATE: 10/03/2018 10:22 PM. CLINICAL HISTORY: Raynaud's phenomenon. COMPARISON: None. TECHNIQUE: A blood pressure cuff and pulse volume recording Doppler ultrasound was used to evaluate the arterial pressures in the arms and ankle. No images were acquired. FINDINGS: Brachial pressure: Right brachial artery: 144/85 mmHg, index 1.00 Left brachial artery: 139/101 mmHg, index 1.00 Right ankle pressures: Dorsalis pedis artery: Visually patent by color Doppler with brisk systolic arterial upstrokes by spectral Doppler. Posterior tibial artery: Visually patent by color Doppler with brisk systolic arterial upstrokes by spectral Doppler. Doppler monitored ankle pressure: 117/97 mmHg, index 0.8. Left ankle pressures: Dorsalis pedis artery: Visually patent by color Doppler with brisk systolic arterial upstrokes by spectral Doppler. Posterior tibial artery: Visually patent by color Doppler with brisk systolic arterial upstrokes by spectral Doppler. Doppler monitored ankle pressure: 123/69 mmHg, index 0.9. IMPRESSION: 1. Right ankle/brachial index: 0.8. 2. Left ankle/brachial index: 0.9. Normal ankle brachial indices with no blunting of distal waveforms to suggest fixed inflow disease. ANKLE/BRACHIAL INDEX REFERENCE STANDARDS 1.0-1.4: Normal 0.90-0.99: Borderline < 0.9: Abnormal RADIA
== END 2018-10-03 21:59 | disposition home or self-care (01) ==
LOC: DI 21:58
PROVIDERS: ATTEND Physician Assistant
DX: I73.00 Raynaud's syndrome without gangrene (principal)
CPT/HCPCS: 93922

== ENCOUNTER 2018-11-07 08:00 | Outpatient (CLI) | payer OTHER ==
[2018-11-07 18:50] LABS: BASOPHILS # (AUTO) 0.1 10^3/uL (0.0-0.1); BASOPHILS % (AUTO) 0.9 %; EOSINOPHILS # (AUTO) 0.1 10^3/uL (0.0-0.7); EOSINOPHILS % (AUTO) 1.8 %; HGB - HEMOGLOBIN 13.6 g/dL (12.0-16.0); LYMPHOCYTES # (AUTO) 2.7 10^3/uL (1.5-3.5); LYMPHOCYTES % (AUTO) 33.3 %; MEAN CORPUSCULAR HEMOGLOBIN 34.2 pg (27.0-31.0); MEAN CORPUSCULAR HGB CONC 33.2 g/dL (32.0-36.0); MEAN CORPUSCULAR VOLUME 103.1 fL (81.0-99.0); MEAN PLATELET VOLUME 8.1 fL (7.9-10.8); MONOCYTES # (AUTO) 0.5 10^3/uL (0.0-1.0); MONOCYTES % (AUTO) 6.1 %; NEUTROPHILS # (AUTO) 4.6 10^3/uL (1.5-6.6); NEUTROPHILS % (AUTO) 57.9 %; PLT - PLATELET COUNT 293 10^3/uL (130-450); RED BLOOD COUNT 3.96 10^6/uL (4.20-5.40); RED CELL DISTRIBUTION WIDTH 12.6 % (12.0-15.0)
[2018-11-07 19:01] LABS: ALBUMIN 4.7 g/dL (3.2-5.5); ALBUMIN/GLOBULIN RATIO 1.3 (1.0-2.2); BILIRUBIN,TOTAL 0.6 mg/dL (0.2-1.0); CALCIUM 9.7 mg/dL (8.5-10.3); CREATININE 0.6 mg/dL (0.4-1.0); TOTAL PROTEIN 8.3 g/dL (6.7-8.2)
[2018-11-07 19:04] LABS: BILIRUBIN,URINE NEGATIVE (NEGATIVE); GLUCOSE, URINE (UA) NEGATIVE (NEGATIVE); KETONES,URINE (UA) NEGATIVE (NEGATIVE); LEUKOCYTE ESTERASE, URINE NEGATIVE (NEGATIVE); NITRITE,URINE NEGATIVE (NEGATIVE); OCCULT BLOOD,URINE NEGATIVE (NEGATIVE); PROTEIN,URINE NEGATIVE (NEGATIVE); UROBILINOGEN,URINE 0.2 (NORMAL) E.U./dL (NORMAL)
[2018-11-07 19:21] LABS: BACTERIA,URINE Rare /HPF (None Seen); CLARITY,URINE HAZY (CLEAR); RBC,URINE 0-5 /HPF (0-5); SQUAMOUS EPITHELIAL CELL,UR FEW Squamous (<= Few)
[2018-11-09 13:51] LABS: COMPLEMENT COMPONENT C3C 102 mg/dL (83-193); COMPLEMENT COMPONENT C4C 20 mg/dL (15-57)
[2018-11-10 10:42] LABS: ANA SCREEN POSITIVE (NEGATIVE)
== END 2018-11-07 08:01 | disposition home or self-care (01) ==
LOC: LAB.WCP 08:00
PROVIDERS: ATTEND Internal Medicine Rheumatology
DX: M25.50 Pain in unspecified joint (principal); I73.00 Raynaud's syndrome without gangrene; R76.8 Other specified abnormal immunological findings in serum
CPT/HCPCS: 36415; 80053; 81001; 85025; 85651; 86038; 86160

== ENCOUNTER 2018-12-07 08:09 | Outpatient (CLI) | payer OTHER ==
--- NOTE | 2018-12-07 10:45 | Ultrasound Report ---
Reason: HYPERTENSION,TACHYCARDIA Procedure Date: 12/07/2018 Accession Number: [id number] / [id number] Procedure: US - Arterial Visceral Complete CPT Code: FULL RESULT: EXAM: RENAL ARTERY DOPPLER ULTRASOUND EXAM DATE: 12/07/2018 09:20 AM. CLINICAL HISTORY: Hypertension, tachycardia. COMPARISON: None. TECHNIQUE: Real-time sonographic vascular imaging was performed by the camp guard through the renal arterial system with a linear transducer utilizing color-flow, Doppler flow, and spectral analysis. Multiple personnel representative static images were saved for review. FINDINGS: The right renal length is 11.2 cm. The left renal length is 10.1 cm. Right Kidney: 11.2 x 5.7 x 5.2 cm. Echotexture: Within normal limits. Right Segmental Artery: Upper pole: PSV 23.1 cm/sec, RI 0.55. Mid pole: PSV 29.4 cm/sec, RI 0.57. Lower pole: PSV 20.5 cm/sec, RI 0.57. Right Renal Artery: Origin: PSV 146 cm/sec, RA/AO 1.07. Proximal: PSV 143 cm/sec, RA/AO 1.05. Mid: PSV 129 cm/sec, RA/AO 0.95. Distal: PSV 175 cm/sec, RA/AO 1.29. Aorta PSV: 136.0 cm/sec. RRV Patent: Yes. Left Kidney: 10.1 x 5.4 x 4.3 cm. Echotexture: Within normal limits. Left Segmental Artery: Upper pole: PSV 29.4 cm/sec, RI 0.55. Mid pole: PSV 21.3 cm/sec, RI 0.55. Lower pole: PSV 19.4 cm/sec, RI 0.53. Left Renal Artery: Origin: PSV 129 cm/sec, RA/AO 0.95. Proximal: PSV 138 cm/sec, RA/AO 1.01. Mid: PSV 151 cm/sec, RA/AO 1.11. Distal: PSV 160 cm/sec, RA/AO 1.18. LRV Patent: Yes. IMPRESSION: There is no evidence of hemodynamically significant renal artery stenosis. CRITERIA FOR CLASSIFICATION OF RENAL ARTERY (RA) DISEASE BY DUPLEX SCANNING: RA Diameter Reduction/ RA PSV/ RAR: Normal, < 180 cm/sec, < 3.5 < 60%, >= 180 cm/sec, < 3.5 >= 60%, >= 180 cm/sec, >= 3.5 Total Occlusion: Undetectable; Not applicable RADIA
== END 2018-12-07 08:10 | disposition home or self-care (01) ==
LOC: DI 08:09
PROVIDERS: ATTEND Physician Assistant
DX: I10 Essential (primary) hypertension (principal); R00.0 Tachycardia, unspecified; R19.04 Left lower quadrant abdominal swelling, mass and lump
CPT/HCPCS: 76857; 93306; 93975

== ENCOUNTER 2018-12-07 16:47 | Outpatient (CLI) | payer OTHER ==
--- NOTE | 2018-12-07 10:15 | Ultrasound Report ---
Reason: LUMP RIGHT SIDE OF GROIN Procedure Date: 12/07/2018 Accession Number: [id number] / [id number] Procedure: US - Pelvic Limited or F/U CPT Code: FULL RESULT: EXAM: Limited abdominal/pelvic ultrasound EXAM DATE: 12/07/2018 09:48 AM. CLINICAL HISTORY: LUMP RIGHT SIDE OF GROIN. COMPARISON: None. TECHNIQUE: Real-time scanning was performed of the right lower quadrant with static images obtained. FINDINGS: Special attention was given to the right inguinal region. There is no suspicious mass or evidence of inguinal hernia. ASSOCIATED FINDINGS: Lymph Nodes Seen: Yes Number of Nodes Visualized: A solitary benign-appearing inguinal lymph node identified of no clinical significance, measuring 16 x 8 x 4 mm diameter. Largest Node: cm Other: None. IMPRESSION: Negative examination. RADIA
== END 2018-12-07 16:48 | disposition home or self-care (01) ==
LOC: DI 16:47
PROVIDERS: ATTEND Physician Assistant
DX: K40.90 Unilateral inguinal hernia, without obstruction or gangrene, not specified as recurrent (principal)
CPT/HCPCS: 76857

== ENCOUNTER 2019-01-17 12:09 | Outpatient (CLI) | payer OTHER | END 2019-01-17 12:10 | disposition critical access hospital (66) | LOC: EMS 12:09 | PROVIDERS: ATTEND Surgery | DX: R00.0 Tachycardia, unspecified (principal) | CPT/HCPCS: A0425; A0429 ==

== ENCOUNTER 2019-01-17 12:28 | Emergency (ER) | payer OTHER ==
--- NOTE | 2019-01-17 12:37 | ED Physician Documentation ---
History of Present Illness - Stated complaint Stated Complaint: RAPID HR - Chief complaint Chief Complaint: Cardiac - History obtained from History obtained from: Patient - History of Present Illness Timing: Prior to arrival - Additonal information Additional information: Patient is a 23-year-old female with complicated history of arrhythmia that is currently under investigation by multiple cardiologists and other specialists including dormitory keeper. Patient reports that she has had episodes of tachycardia for several months and is currently undergoing Holter monitoring. Patient reports associated symptoms of lightheadedness, nausea, clamminess without syncope, vomiting, chest pain, difficulty breathing, productive cough, fever, abdominal pain, urinary or stool changes. Patient reports that thyroid studies have been within normal limits. Patient also reports all imaging has been within normal limits and yesterday had CT imaging from neck through pelvis but has not yet heard the results. There is a concern for possible adrenal component. Patient is currently taking diltiazem and has alprazolam as needed for anxiety. Patient denies caffeine, alcohol, tobacco and other illicit substances. Patient denies and has IUD in place. No other improving or worsening factors noted. Review of Systems Constitutional: denies: Fever Cardiac: reports: Palpitations. denies: Chest pain / pressure Respiratory: denies: Dyspnea, Cough GI: reports: Nausea. 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: Other (diagnostic laparoscopy) - Present Medications Home Medications: Ambulatory Orders Medication Instructions Recorded Confirmed Alprazolam [Alprazolam Odt] 0.5 mg PO DAILY 11/02/12 01/17/19 buPROPion [Wellbutrin Xl] 200 mg PO DAILY 11/24/14 01/17/19 Diltiazem HCl [Diltiazem ER] 180 mg PO BID 01/17/19 01/17/19 - Allergies Allergies/Adverse Reactions: Allergies Allergy/AdvReac Type Severity Reaction Status Date / Time Sulfa (Sulfonamide Allergy Unknown Hives Verified 01/17/19 12:38 Antibiotics) ciprofloxacin Allergy Hives Verified 01/17/19 12:38 - Social History Does the pt smoke?: No Smoking Status: Never smoker Does the pt drink ETOH?: No Does the pt have substance abuse?: No - Immunizations Immunizations are current?: Yes - POLST Patient has POLST: No PD ED PE NORMAL - Vitals Vital signs reviewed: Yes - General General: Alert and oriented X 3, Well developed/nourished. No: No acute distress (Slightly anxious) - HEENT HEENT: Atraumatic, Moist mucous membranes, Pharynx benign - Neck Neck: Supple, no meningeal sign - Cardiac Cardiac: RRR, No murmur - Respiratory Respiratory: No respiratory distress - Abdomen Abdomen: Normal bowel sounds, Soft, Non tender, Non distended - Derm Derm: Normal color, Warm and dry, No rash - Extremities Extremities: No deformity, No tenderness to palpate, No edema - Neuro Neuro: Alert and oriented X 3, No motor deficit, No sensory deficit - Psych Psych: Normal mood, Normal affect Results - Vitals Vitals: Vital Signs - 24 hr 01/17/19 01/17/19 12:31 13:02 Temperature 37.2 C Heart Rate 117 H 86 Respiratory 11 L 15 Rate Blood Pressure 147/91 H 125/82 H O2 Saturation 100 100 Oxygen O2 Source Room air - EKG (time done) 1233 Rate: Rate (enter#) (105) Rhythm: Sinus tachycardia - Labs Labs: Laboratory Tests 01/17/19 01/17/19 01/17/19 12:30 12:30 12:30 WBC 7.2 RBC 3.84 L Hgb 13.1 Hct 38.8 MCV 101.0 H MCH 34.1 H MCHC 33.8 RDW 11.8 L Plt Count 252 MPV 9.5 Neut # (Auto) 5.3 Lymph # (Auto) 1.4 L [place] # (Auto) 0.4 Eos # (Auto) 0.1 Baso # (Auto) 0.0 Absolute Nucleated RBC 0.00 Nucleated RBC % 0.0 PT 11.5 INR 1.0 APTT 29.6 Sodium 137 Potassium 3.8 Chloride 100 L Carbon Dioxide 21 Anion Gap 16.0 H BUN 12 Creatinine 0.6 Estimated GFR (MDRD) 125 Glucose 101 H Calcium 9.3 Total Bilirubin 0.8 AST 47 H ALT 57 Alkaline Phosphatase 112 Troponin I Troponin I High Sens Total Protein 8.2 Albumin 4.9 Globulin 3.3 Albumin/Globulin Ratio 1.5 Lipase 27 TSH Urine Color Urine Clarity Urine pH Ur Specific [place] Urine Protein Urine Glucose (UA) Urine Ketones Urine Occult Blood Urine Nitrite Urine Bilirubin Urine Urobilinogen Ur Leukocyte Esterase Ur Microscopic Review Urine Culture Comments Urine HCG, Qual Salicylates < 4.0 Urine Opiates Screen Ur Oxycodone Screen Urine Methadone Screen Ur Propoxyphene Screen Acetaminophen < 10 L Ur Barbiturates Screen Ur Tricyclics Screen Ur Phencyclidine Scrn Ur Amphetamine Screen U Methamphetamines Scrn U Benzodiazepines Scrn Urine Cocaine Screen U Cannabinoids Screen 01/17/19 01/17/19 01/17/19 12:30 12:30 12:45 WBC RBC Hgb Hct MCV MCH MCHC RDW Plt Count MPV Neut # (Auto) Lymph # (Auto) [place] # (Auto) Eos # (Auto) Baso # (Auto) Absolute Nucleated RBC Nucleated RBC % PT INR APTT Sodium Potassium Chloride Carbon Dioxide Anion Gap BUN Creatinine Estimated GFR (MDRD) Glucose Calcium Total Bilirubin AST ALT Alkaline Phosphatase Troponin I < 0.04 Troponin I High Sens 3.7 Total Protein Albumin Globulin Albumin/Globulin Ratio Lipase TSH 2.83 Urine Color LT. YELLOW Urine Clarity CLEAR Urine pH 7.5 Ur Specific [place] 1.010 Urine Protein NEGATIVE Urine Glucose (UA) NEGATIVE Urine Ketones TRACE Urine Occult Blood NEGATIVE Urine Nitrite NEGATIVE Urine Bilirubin NEGATIVE Urine Urobilinogen 0.2 (NORMAL) Ur Leukocyte Esterase NEGATIVE Ur Microscopic Review NOT INDICATED Urine Culture Comments NOT INDICATED Urine HCG, Qual Salicylates Urine Opiates Screen NEGATIVE Ur Oxycodone Screen NEGATIVE Urine Methadone Screen NEGATIVE Ur Propoxyphene Screen NEGATIVE Acetaminophen Ur Barbiturates Screen NEGATIVE Ur Tricyclics Screen NEGATIVE Ur Phencyclidine Scrn NEGATIVE Ur Amphetamine Screen NEGATIVE U Methamphetamines Scrn NEGATIVE U Benzodiazepines Scrn POSITIVE H Urine Cocaine Screen NEGATIVE U Cannabinoids Screen NEGATIVE 01/17/19 12:45 WBC RBC Hgb Hct MCV MCH MCHC RDW Plt Count MPV Neut # (Auto) Lymph # (Auto) [place] # (Auto) Eos # (Auto) Baso # (Auto) Absolute Nucleated RBC Nucleated RBC % PT INR APTT Sodium Potassium Chloride Carbon Dioxide Anion Gap BUN Creatinine Estimated GFR (MDRD) Glucose Calcium Total Bilirubin AST ALT Alkaline Phosphatase Troponin I Troponin I High Sens Total Protein Albumin Globulin Albumin/Globulin Ratio Lipase TSH Urine Color Urine Clarity Urine pH Ur Specific [place] 1.010 Urine Protein Urine Glucose (UA) Urine Ketones Urine Occult Blood Urine Nitrite Urine Bilirubin Urine Urobilinogen Ur Leukocyte Esterase Ur Microscopic Review Urine Culture Comments Urine HCG, Qual NEGATIVE Salicylates Urine Opiates Screen Ur Oxycodone Screen Urine Methadone Screen Ur Propoxyphene Screen Acetaminophen Ur Barbiturates Screen Ur Tricyclics Screen Ur Phencyclidine Scrn Ur Amphetamine Screen U Methamphetamines Scrn U Benzodiazepines Scrn Urine Cocaine Screen U Cannabinoids Screen PD MEDICAL DECISION MAKING - ED course Complexity details: reviewed results, re-evaluated patient, considered differential, d/w patient, d/w family ED course: Patient presenting with persistence of known tachycardia and near syncope for which patient has received extensive work-ups repeatedly and is following with multiple specialists including 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 Patient has Holter monitoring in place. No evidence of particular arrhythmia such as WPW, [place], SVT, A. fib, a flutter or otherwise. Do not have high suspicion for PE, ACS, HI, unstable angina, dissection, aneurysm, but considered. EKG found evidence of sinus tachycardia.Patient started on IV fluids, but did not require medications. Screening lab work including thyroid testing, cardiac enzymes, urinalysis, returned unremarkable. Do not feel patient requires imaging as she has had extensive imaging already including recent CT scan yesterday. Patient certainly does not appear to be in an adrenal crisis, although she voices concerns that the adrenal gland may be involved per her physician report. At this time, do not feel she requires urgent consult, hospitalization, new medications. Feel that she is safe to discharge home, but advised to continue all medications and Holter monitoring, as well as obtain close follow-up with her 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 Patient and family voiced understanding and are comfortable with discharge plan. Departure - Departure Disposition: 01 Home, Self Care Clinical Impression: Sinus tachycardia Condition: Good Instructions: Tachycardia Follow-Up: Isela Celestin PA [Primary Care Provider] - Within 3 Days Comments: Please continue all home medications as previously instructed. Please follow-up with your primary care physician and concrete crusher loader operator in the next 2 to 3 days. Continue Holter monitoring. Return to ED sooner if experience worsening symptoms or have other concerns.
[2019-01-17] MEDS ORDERED: SODIUM CHLORIDE 0.9% 1,000 ML IV ONE (12:40)
[2019-01-17 12:52] LABS: MUDS CUTOFF CONCENTRATIONS CUTOFF CONC BELOW:
[2019-01-17 12:53] LABS: BASOPHILS % (AUTO) 0.6 %; EOSINOPHILS # (AUTO) 0.1 10^3/uL (0.0-0.7); EOSINOPHILS % (AUTO) 1.2 %; HGB - HEMOGLOBIN 13.1 g/dL (12.0-16.0); LYMPHOCYTES # (AUTO) 1.4 10^3/uL (1.5-3.5); LYMPHOCYTES % (AUTO) 18.8 %; MEAN CORPUSCULAR HEMOGLOBIN 34.1 pg (27.0-31.0); MEAN CORPUSCULAR HGB CONC 33.8 g/dL (32.0-36.0); MEAN PLATELET VOLUME 9.5 fL (7.9-10.8); MONOCYTES # (AUTO) 0.4 10^3/uL (0.0-1.0); MONOCYTES % (AUTO) 5.8 %; NEUTROPHILS # (AUTO) 5.3 10^3/uL (1.5-6.6); NEUTROPHILS % (AUTO) 73.2 %; PLT - PLATELET COUNT 252 10^3/uL (130-450); RED BLOOD COUNT 3.84 10^6/uL (4.20-5.40); RED CELL DISTRIBUTION WIDTH 11.8 % (12.0-15.0); WHITE BLOOD COUNT 7.2 x10^3/uL (4.8-10.8)
[2019-01-17 12:56] LABS: BILIRUBIN,URINE NEGATIVE (NEGATIVE); GLUCOSE, URINE (UA) NEGATIVE (NEGATIVE); KETONES,URINE (UA) TRACE mg/dL (NEGATIVE); LEUKOCYTE ESTERASE, URINE NEGATIVE (NEGATIVE); NITRITE,URINE NEGATIVE (NEGATIVE); OCCULT BLOOD,URINE NEGATIVE (NEGATIVE); PH,URINE 7.5 PH (5.0-7.5); PROTEIN,URINE NEGATIVE (NEGATIVE); UROBILINOGEN,URINE 0.2 (NORMAL) E.U./dL (NORMAL)
[2019-01-17 12:58] LABS: CLARITY,URINE CLEAR (CLEAR); HCG UR QUAL NEGATIVE
[2019-01-17 13:01] LABS: PT - PROTHROMBIN TIME 11.5 secs (9.9-12.6)
[2019-01-17 13:05] LABS: AMPHETAMINE SCREEN,URINE NEGATIVE (NEGATIVE); BENZODIAZEPINES SCREEN, URINE POSITIVE (NEGATIVE); COCAINE SCREEN URINE NEGATIVE (NEGATIVE); METHADONE SCREEN, URINE NEGATIVE (NEGATIVE); METHAMPHETAMINES SCREEN, URINE NEGATIVE (NEGATIVE); OPIATE SCREEN, URINE NEGATIVE (NEGATIVE); OXYCODONE SCREEN, URINE NEGATIVE (NEGATIVE); PROPOXYPHENE SCREEN, URINE NEGATIVE (NEGATIVE); TRICYCLIC ANTIDEPRESSANT,URINE NEGATIVE (NEGATIVE)
[2019-01-17 13:08] LABS: PARTIAL THROMBOPLASTIN TIME 29.6 secs (24.9-33.3)
[2019-01-17 13:11] LABS: ALBUMIN 4.9 g/dL (3.2-5.5); ALBUMIN/GLOBULIN RATIO 1.5 (1.0-2.2); ALKALINE PHOSPHATASE 112 IU/L (42-121); ALT ALANINE AMINOTRANSFERASE 57 IU/L (10-60); AST ASPARTATE AMINOTRANSFERASE 47 IU/L (10-42); BILIRUBIN,TOTAL 0.8 mg/dL (0.2-1.0); BUN - BLOOD UREA NITROGEN 12 mg/dL (6-20); CALCIUM 9.3 mg/dL (8.5-10.3); CARBON DIOXIDE - CO2 21 mmol/L (21-32); CHLORIDE 100 mmol/L (101-111); CREATININE 0.6 mg/dL (0.4-1.0); GFR - MDRD 125 (>89); GLUCOSE 101 mg/dL (70-100); SODIUM 137 mmol/L (135-145); TOTAL PROTEIN 8.2 g/dL (6.7-8.2)
[2019-01-17 13:12] LABS: ACETAMINOPHEN < 10 ug/mL (10-30); LIPASE 27 U/L (22-51); SALICYLATE < 4.0 mg/dL
[2019-01-17 13:30] LABS: TROPONIN I < 0.04 ng/mL (<0.49)
[2019-01-17 14:13] VITALS: BP 127/89
== END 2019-01-17 14:13 | disposition home or self-care (01) ==
LOC: EDUNIT# → ED 12:28
DX: R00.0 Tachycardia, unspecified (principal)
CPT/HCPCS: 36415; 80053; 80306; 80307; 80329; 81001; 81003; 81025; 83690; 84443; 84484; 85025; 85610; 85730; 87086; 96360; 99284

== ENCOUNTER 2019-03-27 08:00 | Outpatient (CLI) | payer OTHER ==
[2019-03-27 18:41] LABS: BASOPHILS % (AUTO) 0.6 %; EOSINOPHILS # (AUTO) 0.2 10^3/uL (0.0-0.7); EOSINOPHILS % (AUTO) 2.6 %; LYMPHOCYTES # (AUTO) 1.9 10^3/uL (1.5-3.5); MEAN CORPUSCULAR HEMOGLOBIN 34.8 pg (27.0-31.0); MEAN CORPUSCULAR HGB CONC 33.4 g/dL (32.0-36.0); MEAN PLATELET VOLUME 10.1 fL (7.9-10.8); MONOCYTES # (AUTO) 0.5 10^3/uL (0.0-1.0); MONOCYTES % (AUTO) 6.5 %; NEUTROPHILS # (AUTO) 4.6 10^3/uL (1.5-6.6); PLT - PLATELET COUNT 247 10^3/uL (130-450); RED BLOOD COUNT 3.74 10^6/uL (4.20-5.40); RED CELL DISTRIBUTION WIDTH 11.7 % (12.0-15.0); WHITE BLOOD COUNT 7.2 x10^3/uL (4.8-10.8)
[2019-03-27 19:04] LABS: ALBUMIN 4.9 g/dL (3.2-5.5); ALBUMIN/GLOBULIN RATIO 1.6 (1.0-2.2); ALKALINE PHOSPHATASE 80 IU/L (42-121); ALT ALANINE AMINOTRANSFERASE 46 IU/L (10-60); AST ASPARTATE AMINOTRANSFERASE 40 IU/L (10-42); BUN - BLOOD UREA NITROGEN 13 mg/dL (6-20); CALCIUM 9.6 mg/dL (8.5-10.3); CARBON DIOXIDE - CO2 25 mmol/L (21-32); CHLORIDE 102 mmol/L (101-111); CREATININE 0.7 mg/dL (0.4-1.0); GFR - MDRD 105 (>89); GLUCOSE 129 mg/dL (70-100); SODIUM 136 mmol/L (135-145); TOTAL PROTEIN 7.9 g/dL (6.7-8.2)
[2019-03-27 19:06] LABS: CRP - C-REACTIVE PROTEIN < 1.0 mg/dL (0-1.0)
[2019-03-27 19:15] LABS: RHEUMATOID FACTOR NEGATIVE (Negative)
[2019-03-28 11:42] LABS: HEPATITIS C ANTIBODY NON-REACTIVE (NON-REACTIVE)
[2019-03-29 21:27] LABS: CYCLIC CITRULL PEPTIDE CCP IGG <16 UNITS
[2019-03-30 00:26] LABS: ANGIOTENSIN-1-CONVERTING ENZYM 54 U/L (9-67)
== END 2019-03-27 23:59 | disposition home or self-care (01) ==
LOC: LAB.WCP 08:00
PROVIDERS: ATTEND Internal Medicine Rheumatology
DX: M25.50 Pain in unspecified joint (principal); I73.00 Raynaud's syndrome without gangrene
CPT/HCPCS: 36415; 80053; 82164; 85025; 85651; 86140; 86200; 86430; 86803

== ENCOUNTER 2019-07-10 14:52 | Outpatient (CLI) | payer OTHER ==
--- NOTE | 2019-07-11 04:47 | XRAY Report ---
Reason: BACK PAIN Procedure Date: 07/10/2019 Accession Number: [id number] / [id number] Procedure: XRN - Lumbar Spine 2 View CPT Code: Final Report FULL RESULT: EXAM: THORACIC AND LUMBOSACRAL SPINE RADIOGRAPHY EXAM DATE: 07/10/2019 03:17 PM CLINICAL HISTORY: Back pain. COMPARISONS: THORACIC SPINE 2 VIEW 07/10/2019 3:17 PM, CHEST 2 VIEW 09/05/2018 10:07 PM, CHEST ANGIO 05/01/2018 5:48 PM. TECHNIQUE: 2 views of the thoracic spine and 3 views of the lumbar spine. FINDINGS: Alignment: Mild thoracolumbar scoliosis. No acute malalignment seen. Bones: Five agm-[id number] lumbar vertebral bodies are present. No fractures or bone lesions. Disks: Normal. Disk heights are maintained. Facets: No degenerative changes. Sacroiliac Joints: Unremarkable. Soft Tissues: IUD present. The visualized portions of the lungs are clear and bowel gas pattern is grossly unremarkable. IMPRESSION: Mild thoracolumbar scoliosis without acute abnormality seen in the thoracic or lumbar spine. RADIA
--- NOTE | 2019-07-11 04:47 | XRAY Report ---
Reason: BACK PAIN Procedure Date: 07/10/2019 Accession Number: [id number] / [id number] Procedure: XRN - Thoracic Spine 2 View CPT Code: Final Report FULL RESULT: EXAM: THORACIC AND LUMBOSACRAL SPINE RADIOGRAPHY EXAM DATE: 07/10/2019 03:17 PM CLINICAL HISTORY: Back pain. COMPARISONS: THORACIC SPINE 2 VIEW 07/10/2019 3:17 PM, CHEST 2 VIEW 09/05/2018 10:07 PM, CHEST ANGIO 05/01/2018 5:48 PM. TECHNIQUE: 2 views of the thoracic spine and 3 views of the lumbar spine. FINDINGS: Alignment: Mild thoracolumbar scoliosis. No acute malalignment seen. Bones: Five chx-pwz-[id number] lumbar vertebral bodies are present. No fractures or bone lesions. Disks: Normal. Disk heights are maintained. Facets: No degenerative changes. Sacroiliac Joints: Unremarkable. Soft Tissues: IUD present. The visualized portions of the lungs are clear and bowel gas pattern is grossly unremarkable. IMPRESSION: Mild thoracolumbar scoliosis without acute abnormality seen in the thoracic or lumbar spine. RADIA
== END 2019-07-10 14:53 | disposition home or self-care (01) ==
LOC: DI.N 14:52
PROVIDERS: ATTEND Physician Assistant
DX: M41.35 Thoracogenic scoliosis, thoracolumbar region (principal)
CPT/HCPCS: 72070; 72100

== ENCOUNTER 2019-07-12 11:04 | Outpatient (CLI) | payer OTHER ==
--- NOTE | 2019-07-13 09:28 | XRAY Report ---
Reason: LEFT SHOULDER PAIN Procedure Date: 07/12/2019 Accession Number: [id number] / [id number] Procedure: WCP - Shoulder 2 View LT CPT Code: Final Report FULL RESULT: EXAM: LEFT SHOULDER RADIOGRAPHY EXAM DATE: 07/12/2019 11:04 AM HISTORY: LEFT SHOULDER PAIN COMPARISON: None. TECHNIQUE: AP and scapular Y view, a total of 2 Views FINDINGS: Glenohumeral Joint: No significant abnormality. AC Joint: No significant abnormality. No fracture. Overall normal alignment. Unremarkable soft tissues. IMPRESSION: Normal shoulder radiography. RADIA
== END 2019-07-12 23:59 | disposition home or self-care (01) ==
LOC: DI.WCP 11:04
PROVIDERS: ATTEND Family Medicine
DX: M25.512 Pain in left shoulder (principal)

== ENCOUNTER 2019-07-18 11:49 | Outpatient (CLI) | payer OTHER ==
[~2019-07-18 11:49] MED LIST: IOVERSOL 320 100 ML VIAL IVP ONE
--- NOTE | 2019-07-18 15:28 | Ultrasound Report ---
Reason: LIPOMA LT FOREARM Procedure Date: 07/18/2019 Accession Number: [id number] / [id number] Procedure: US - Ext Limited Non Vascular CPT Code: Final Report FULL RESULT: EXAM: LEFT UPPER EXTREMITY ULTRASOUND - LIMITED EXAM DATE: 07/18/2019 12:26 PM. CLINICAL HISTORY: LIPOMA LT FOREARM. COMPARISON: None. TECHNIQUE: Real-time scanning was performed with static images obtained. FINDINGS: Oval subcutaneous avascular noncalcified 0.3 x 0.1 cm nodule. IMPRESSION: Nonspecific subcutaneous avascular noncalcified 0.3 x 0.1 cm nodule RADIA
== END 2019-07-18 11:50 | disposition home or self-care (01) ==
LOC: DI 11:49
PROVIDERS: ATTEND Physician Assistant
DX: R22.32 Localized swelling, mass and lump, left upper limb (principal)
CPT/HCPCS: 76882

== ENCOUNTER 2019-07-22 14:45 | Outpatient (CLI) | payer OTHER | END 2019-07-22 23:59 | disposition home or self-care (01) | LOC: LAB.R 14:45 | PROVIDERS: ATTEND Physician Assistant | DX: R35.0 Frequency of micturition (principal) | CPT/HCPCS: 87086 ==

== ENCOUNTER 2019-08-13 07:11 | Day surgery (SDC) | payer OTHER ==
[2019-08-13] MEDS ORDERED: LACTATED RINGERS 1,000 ML IV ONE ×3 (07:14→10:34)
--- NOTE | 2019-08-13 07:28 | ANESTHESIA ---
Pre-Anesthesia VS, & Labs - Diagnosis L forearm SQ lesion - Procedure L forearm SQ lesion excision Vital Signs: Last Vital Signs Temp 36.4 C L 08/13/19 07:21 Pulse 92 08/13/19 07:21 Resp 16 08/13/19 07:21 BP 131/97 H 08/13/19 07:21 Pulse Ox 100 08/13/19 07:21 Height 5 ft 3 in Weight (kg) 57 kg Body Mass Index 18.8 - NPO >8 hours - Is Patient ?: No - Lab Results Lab results reviewed: Yes Home Medications and Allergies Home Medications: Ambulatory Orders Acetaminophen with Codeine [Tylenol with Codeine #3 Tablet] 1 - 2 each PO BID PRN 08/06/19 Dicyclomine HCl 10 - 20 mg PO QID PRN 08/06/19 Ibuprofen [Motrin] 600 mg PO Q6H PRN 08/06/19 hydrOXYzine HCL [Hydroxyzine HCl] 25 mg PO TID PRN 08/06/19 Alprazolam [Alprazolam Odt] 0.5 mg PO BID PRN 11/02/12 buPROPion [Wellbutrin Xl] 200 mg PO DAILY 11/24/14 Diltiazem HCl [Diltiazem ER] 180 mg PO DAILY 01/17/19 Acetaminophen with Codeine [Tylenol with Codeine #3 Tablet] 1 - 2 each PO BID PRN 08/06/19 Dicyclomine HCl 10 - 20 mg PO QID PRN 08/06/19 Ibuprofen [Motrin] 600 mg PO Q6H PRN 08/06/19 hydrOXYzine HCL [Hydroxyzine HCl] 25 mg PO TID PRN 08/06/19 Allergies/Adverse Reactions: Allergies Allergy/AdvReac Type Severity Reaction Status Date / Time Sulfa (Sulfonamide Allergy Unknown Hives Verified 01/17/19 12:38 Antibiotics) ciprofloxacin Allergy Hives Verified 01/17/19 12:38 Anes History & Medical History - Anesthetic History Family history of Anesthesia Complications: Denies Family history of Malignant Hyperthermia: Denies - Medical History Cardiovascular: reports: Hypertension, Arrhythmia (frequent tachycardia) Pulmonary: reports: None Gastrointestinal: reports: GERD, Ulcers Urinary: reports: None Neuro: reports: None Musculoskeletal: reports: Fibromyalgia, Fatigue Endocrine/Autoimmune: reports: None Blood Disorders: reports: None Skin: reports: None Smoking Status: Never smoker - Surgical History General: Colonoscopy, EGD Gynecologic: Other Exam General: Alert, Oriented x3, Cooperative Dental: WNL Mouth Openin Fingerbreadth Neck Mobility: Normal Mallampati classification: II Thyromental Distance: 4-6 cm Respiratory: Lungs clear, Normal breath sounds, No respiratory distress Cardiovascular: Regular rate Neurological: Normal speech Mental/Cognitive Status: Alert/Oriented X3 Cognitive Status: Within normal limits Plan Anesthesia Type: MAC Consent for Procedure(s) Verified and Reviewed: Yes Code Status: Attempt Resuscitation ASA classification: 2-Mild systemic disease Is this case an emergency?: No
[2019-08-13 07:29] LABS: HCG UR QUAL NEGATIVE
[2019-08-13] MEDS ORDERED: BUPIVACAINE 0.5% PF 30 ML VIAL ONE (07:41)
[2019-08-13] MEDS ORDERED: LIDOCAINE 1%-EPI 1:100000 20 ML MDV ONE (07:42)
[2019-08-13] MEDS ORDERED: HYDROcod/ACETAM 5/325 MG TABLET PO PRN (08:43)
[2019-08-13] MEDS ORDERED: ONDANSETRON 4 MG/2 ML VIAL IVP PRN (08:43)
[2019-08-13] MEDS ORDERED: HYDROmorphone 0.5 MG/0.5 ML SYRINGE IVP PRN (08:43)
[2019-08-13] MEDS ORDERED: MIDAZOLAM 2 MG/2 ML VIAL IVP ONE (08:58)
[2019-08-13] MEDS ORDERED: LIDOCAINE-MPF 2% 5 ML VIAL IM ONE (08:58)
[2019-08-13] MEDS ORDERED: SUCCINYLCHOLINE 200 MG/10 ML VIAL IVP ONE (08:58)
[2019-08-13] MEDS ORDERED: PROPOFOL 200 MG/20 ML VIAL IVP ONE (08:58)
[2019-08-13] MEDS ORDERED: ONDANSETRON 4 MG/2 ML VIAL IVP ONE (08:58)
[2019-08-13] MEDS ORDERED: ESMOLOL 100 MG/10 ML VIAL IVP ONE (08:58)
[2019-08-13] MEDS ORDERED: DEXAMETHASONE 4 MG/ML VIAL IVP ONE (08:58)
[2019-08-13] MEDS ORDERED: BUPIVACAINE 0.25% PF 10 ML VIAL SUBQ ONE (09:20)
[2019-08-13] MEDS ORDERED: LIDOCAINE 1%-EPI 1:100000 20 ML MDV SUBQ ONE (09:20)
--- NOTE | 2019-08-13 10:12 | OPERATIVE REPORT ---
Operative Report - General Procedure Date: 08/13/19 Pre-Op Diagnosis: Subcutaneous Nodule of Left Forearm Procedure Performed: Excisional Biopsy of Left Forearm Subcutaneous Nodule Post Op Diagnosis: same - Procedure Note Primary Surgeon: Ihsan Arreaga MD Anesthesia Provider: Naga Goodwin CRNA Anesthesia Technique: General ET tube (pt was prohibitively hypertensive and tachycardic with intermittent apnea with propofol alone so LMA was inserted pre operatively. During the case, she went into laryngospasm so this was converted to ETT.) Pathology: left forearm subcutaneous tissue Estimated Blood Loss (mL): 3 Indications: Patient has a small subcutaneous nodule (3mm per US) of her left forearm that has been present and bothering her for some time. She has high anxiety and this causes her stress from worry about what it may be. She would like it removed and defers office procedure due to her high anxiety and concurrent workup for HTN and tachycardia. I felt the nodule in office with her and when we marked it pre-op I did not feel a distinct lesion but pt confidently did so we marked that area. All risks, benefits, and alternatives have been discussed and pt wishes to proceed. Post op, mother tells me that a few days ago pt noted she could barely feel the lesion. Findings: no distinct lesion felt, subcutaneous tissue removed with possible area of firmer tissue palpated Complications: laryngospasm requiring intra-op conversion to ETT - Other Other Information/Narrative: Patient is taken to the OR suite, placed in supine position, and induced to an acceptable level of general anesthesia. The area is prepped and draped in sterile fashion and a timeout performed with the team present. Attention is turned to the lesion of the left forearm which was marked with patient in pre- op. Local anesthesia is infiltrated over the site. An incision is made with a 15 blade scalpel over this area. It is carried down through the dermis and subcutaneous tissues using electrocautery. No distinct mass is found but the underlying tissue contained a focal area of somewhat firmer texture. Subcutaneous tissue was removed for pathology. No other abnormalities seen or palpated with thorough examination. The field is irrigated and hemostasis ensured. The dermis is closed with 3-0 vicryl in an interrupted fashion and the epidermis with 4-0 monocryl in running fashion. The area is cleaned and dried and dermabond applied. All counts were correct. Patient tolerated the procedure well, was awakened without issue, and taken to PACU hemodynamically stable.
[2019-08-13] MEDS ORDERED: HYDROcod/ACETAM 5/325 MG TABLET ONE (10:45)
[2019-08-13 11:20] VITALS: BP 120/70
== END 2019-08-13 07:12 | disposition home or self-care (01) ==
LOC: SDS 07:11
PROVIDERS: ATTEND Surgery
PROC: 0JBH0ZZ Excision of Left Lower Arm Subcutaneous Tissue and Fascia, Open Approach (ICD-10-PCS; principal; 2019-08-13 08:15)
DX: M79.89 Other specified soft tissue disorders (principal); T88.52XA Failed moderate sedation during procedure, initial encounter; J38.5 Laryngeal spasm; Y92.234 Operating room of hospital as the place of occurrence of the external cause; I10 Essential (primary) hypertension; R00.0 Tachycardia, unspecified; R06.81 Apnea, not elsewhere classified; F41.0 Panic disorder [episodic paroxysmal anxiety]; Z79.899 Other long term (current) drug therapy; Z80.3 Family history of malignant neoplasm of breast
CPT/HCPCS: 11400; 12031; 81025; 88305; A9270; J0330; J7120

== ENCOUNTER 2019-09-25 16:57 | Outpatient (CLI) | payer OTHER ==
--- NOTE | 2019-09-26 01:55 | Ultrasound Report ---
Reason: LEFT PELVIC PAIN Procedure Date: 09/25/2019 Accession Number: [id number] / [id number] Procedure: US - Pelvic w/Transvaginal CPT Code: Final Report FULL RESULT: EXAM: PELVIC ULTRASOUND EXAM DATE: 09/25/2019 06:00 PM. CLINICAL HISTORY: LEFT PELVIC PAIN. COMPARISON: PELVIC W/TRANSVAGINAL 09/30/2017 8:40 AM. TECHNIQUE: Realtime transabdominal pelvic scan performed to identify the uterus and adnexa and as an overview of other pelvic structures, followed by transvaginal scan to provide greater detail of the uterus and adnexa, with static image documentation. FINDINGS: Uterus: 7.0 x 3.0 x 3.5 cm, volume 38.7 cc. Anteverted position. Normal overall size and echotexture. Masses: None. Endometrium: 6 mm. Intrauterine device is in appropriate position with minimal surrounding fluid. Cervix: Within normal limits. Right Ovary: 3.0 x 2.1 x 3.5 cm, volume 11.6 cc. Normal echotexture and blood flow. Left Ovary: 3.1 x 1.7 x 3.6 cm, volume 9.6 cc. Normal echotexture and blood flow. Suggestion of hyperemia in the left fallopian tube. Free Fluid: None. Other: None. IMPRESSION: No evidence of ovarian torsion. Normally positioned intrauterine device. RADIA
== END 2019-09-25 16:58 | disposition home or self-care (01) ==
LOC: DI 16:57
PROVIDERS: ATTEND Physician Assistant
DX: R10.2 Pelvic and perineal pain (principal); Z97.5 Presence of (intrauterine) contraceptive device
CPT/HCPCS: 76830; 76856

== ENCOUNTER 2019-11-14 08:00 | Outpatient (CLI) | payer OTHER ==
[2019-11-14 18:13] LABS: BASOPHILS # (AUTO) 0.1 10^3/uL (0.0-0.1); BASOPHILS % (AUTO) 1.2 %; EOSINOPHILS # (AUTO) 0.4 10^3/uL (0.0-0.7); EOSINOPHILS % (AUTO) 6.3 %; HGB - HEMOGLOBIN 13.1 g/dL (12.0-16.0); LYMPHOCYTES # (AUTO) 1.5 10^3/uL (1.5-3.5); MEAN CORPUSCULAR HEMOGLOBIN 33.9 pg (27.0-31.0); MEAN CORPUSCULAR HGB CONC 32.3 g/dL (32.0-36.0); MEAN CORPUSCULAR VOLUME 105.2 fL (81.0-99.0); MEAN PLATELET VOLUME 9.9 fL (7.9-10.8); MONOCYTES # (AUTO) 0.4 10^3/uL (0.0-1.0); MONOCYTES % (AUTO) 7.4 %; NEUTROPHILS # (AUTO) 3.4 10^3/uL (1.5-6.6); NEUTROPHILS % (AUTO) 58.9 %; PLT - PLATELET COUNT 273 10^3/uL (130-450); RED BLOOD COUNT 3.86 10^6/uL (4.20-5.40); WHITE BLOOD COUNT 5.7 x10^3/uL (4.8-10.8)
[2019-11-14 18:30] LABS: ALBUMIN 4.6 g/dL (3.2-5.5); ALBUMIN/GLOBULIN RATIO 1.2 (1.0-2.2); BILIRUBIN,TOTAL 0.9 mg/dL (0.2-1.0); CALCIUM 9.4 mg/dL (8.5-10.3); CREATININE 0.6 mg/dL (0.4-1.0); TOTAL PROTEIN 8.3 g/dL (6.7-8.2)
== END 2019-11-14 23:59 | disposition home or self-care (01) ==
LOC: LAB.WCP 08:00
PROVIDERS: ATTEND Physician Assistant
DX: M25.50 Pain in unspecified joint (principal); I10 Essential (primary) hypertension; R00.0 Tachycardia, unspecified
CPT/HCPCS: 36415; 80053; 82088; 84244; 84443; 85025

== ENCOUNTER 2019-11-26 21:10 | Emergency (ER) | payer OTHER ==
[2019-11-26 21:22] VITALS: BP 151/100
--- NOTE | 2019-11-26 21:24 | ED Physician Documentation ---
History of Present Illness - Stated complaint Stated Complaint: NUMB FACE/LEG PX - Chief complaint Chief Complaint: Neuro - History obtained from History obtained from: Patient (The patient is a 24-year-old female who presents with her mother with a ongoing history of multiple paresthesias off and on for several months reports she is voiding consultation with neurology for outpatient MRI tonight she reports she had some different periods of paresthesias a different points on her body at different points in time that have since resolved currently she denies fevers, headache, neck pain, shortness of breath or blurred vision denies any facial droop or unilateral weakness or slurred speech.) Review of Systems Constitutional: reports: Reviewed and negative Eyes: reports: Reviewed and negative Ears: reports: Reviewed and negative Nose: reports: Reviewed and negative Throat: reports: Reviewed and negative Cardiac: reports: Reviewed and negative Respiratory: reports: Reviewed and negative GI: reports: Reviewed and negative : reports: Reviewed and negative Skin: reports: Reviewed and negative Musculoskeletal: reports: Reviewed and negative Neurologic: reports: Other (Paresthesias) Psychiatric: reports: Reviewed and negative Endocrine: reports: Reviewed and negative Immunocompromised: reports: Reviewed and negative PD PAST MEDICAL HISTORY - Past Medical History Cardiovascular: Hypertension, Arrhythmia (frequent tachycardia) Respiratory: None Neuro: None Endocrine/Autoimmune: None GI: GERD, Ulcers 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 HEENT: Chronic vision loss Psych: Depression, Anxiety, Panic attacks, ADD/ADHD, Post traumatic stress disorder Musculoskeletal: Fibromyalgia, Fatigue Derm: None - Past Surgical History Past Surgical History: Yes General: Colonoscopy, EGD /POWER PLANT OPERATOR: Other - Present Medications Home Medications: Ambulatory Orders Medication Instructions Recorded Confirmed Alprazolam [Alprazolam Odt] 0.5 mg PO BID PRN 11/02/12 08/13/19 buPROPion [Wellbutrin Xl] 200 mg PO DAILY 11/24/14 08/13/19 Diltiazem HCl [Diltiazem ER] 180 mg PO DAILY 01/17/19 08/13/19 Acetaminophen with Codeine 1 - 2 each PO BID PRN 08/06/19 08/13/19 [Tylenol with Codeine #3 Tablet] Dicyclomine HCl 10 - 20 mg PO QID PRN 08/06/19 08/13/19 Ibuprofen [Motrin] 600 mg PO Q6H PRN 08/06/19 08/13/19 hydrOXYzine HCL [Hydroxyzine HCl] 25 mg PO TID PRN 08/06/19 08/13/19 - Allergies Allergies/Adverse Reactions: Allergies Allergy/AdvReac Type Severity Reaction Status Date / Time Sulfa (Sulfonamide Allergy Unknown Hives Verified 11/26/19 21:16 Antibiotics) ciprofloxacin Allergy Hives Verified 11/26/19 21:16 - Social History Does the pt smoke?: No Smoking Status: Never smoker Does the pt drink ETOH?: No Does the pt have substance abuse?: No - Immunizations Immunizations are current?: Yes - POLST Patient has POLST: No PD ED PE NORMAL - Vitals Vital signs reviewed: Yes - General General: Alert and oriented X 3, No acute distress, Well developed/nourished - HEENT HEENT: PERRL, Moist mucous membranes - Neck Neck: Supple, no meningeal sign - Cardiac Cardiac: RRR, No murmur, Strong equal pulses - Respiratory Respiratory: No respiratory distress, Clear bilaterally - Abdomen Abdomen: Normal bowel sounds, Soft, Non tender, Non distended, No organomegaly - Back Back: No CVA TTP - Derm Derm: Normal color, Warm and dry, No rash - Extremities Extremities: No deformity, No tenderness to palpate, Normal ROM s pain, No edema, No calf tenderness / cord - Neuro Neuro: Alert and oriented X 3, grapple yarder operator 2-12 intact, No motor deficit, No sensory deficit, Normal speech, Other (There is no facial droop, no pronator drift, no unilateral weakness. Normal [id number] normal [id number] normal rapid alternating movement strength is 5 out of 5 in bilateral upper and lower extremity sensations intact light touch throughout reflexes are 2+ and symmetric in bilateral patella and Achilles. Normal gait can walk on her heels and her toes.NIH score of 0) - Psych Psych: Normal mood, Normal affect Results - Vitals Vitals: Vital Signs - 24 hr 11/26/19 21:16 Temperature 36.5 C Heart Rate 133 H Respiratory 14 Rate Blood Pressure 151/100 H O2 Saturation 100 Oxygen O2 Source Room air PD MEDICAL DECISION MAKING - ED course Complexity details: re-evaluated patient, considered differential (Her history is possibly concerning for MS. I did have a lengthy discussion with this patient and her mother about treatment plan and additional testing that could possibly be performed here explained to her we would be unable to do an emergent MRI tonight however we could possibly admit her for observation however given the fact that we do not have neurology here it would make sense for this patient to be in a establishment with neurology available that being said I did offer to do screening lab work however the patient reports her symptoms are resolved currently she and her mother would like to be discharged home and follow-up as an outpatient as they do have good outpatient establish care for neurology consult and MRI as an outpatient.), d/w patient, d/w family Departure - Departure Disposition: 01 Home, Self Care Clinical Impression: Paresthesias Condition: Stable Instructions: ED Paraesthesias Follow-Up: Isela Celestin PA [Primary Care Provider] - Tomorrow Comments: Follow-up with your primary care provider tomorrow. Discharge Date/Time: 11/26/19 22:50
== END 2019-11-26 22:50 | disposition home or self-care (01) ==
LOC: ED 21:10
DX: R20.2 Paresthesia of skin (principal); I10 Essential (primary) hypertension
CPT/HCPCS: 99282; 99284

== ENCOUNTER 2019-12-11 15:28 | Outpatient (CLI) | payer OTHER ==
[2019-12-11] MEDS ORDERED: GADOBUTROL 7.5 MMOL/7.5 ML VIAL ONE (15:44)
[2019-12-11] MEDS ORDERED: GADOBUTROL 7.5 MMOL/7.5 ML VIAL IVP ONE (17:44)
--- NOTE | 2019-12-11 18:19 | MRI Report ---
PROCEDURE: Brain W/WO INDICATIONS: NUMBNESS, LHERMITTE'S SIGN CONTRAST: IV CONTRAST: Gadavist ml: 6 TECHNIQUE: Noncontrast axial T1 spin echo, axial T2 fast spin echo, sagittal and axial FLAIR, coronal T2 fast sp in echo, axial gradient echo, axial diffusion and ADC through the brain. After the administration of contrast, axial and coronal T1 spin echo with fat saturation through the brain. COMPARISON: Correlation is made with overlapping portions of cervical spine MRI 12/11/2019 FINDINGS: Image quality: Excellent. CSF spaces: Basal cisterns are patent. No extra-axial fluid collections. Ventricles are normal in size and shape. Brain: No midline shift. No intracranial bleeds or masses. No abnormal intracranial enhancement. There is cerebral volume loss for age. There is periventricular white matter chronic small vessel is chemic change. The brainstem appears normal. Diffusion-weighted images demonstrate no acute ischemi c insults. No chronic ischemic insults. Normal intravascular flow voids are present. Skull and face: Calvarial marrow is normal in signal. Orbits appear normal. Sinuses: Sinuses and mastoids appear clear. IMPRESSION: No imaging explanation is found for the patient's presenting symptoms. Reviewed by: Wilbert Lr MD on 12/11/2019 5:18 PM HUI Approved by: Wilbert Lr MD on 12/11/2019 5:18 PM HUI Station ID: [id number]
--- NOTE | 2019-12-11 18:20 | MRI Report ---
PROCEDURE: Cervical Spine W/O INDICATIONS: NUMBNESS, LHERMITTE'S SIGN TECHNIQUE: Noncontrast sagittal T1 spin echo and T2 fast spin echo, sagittal STIR, foraminal oblique sagittal T2 fast spin echo, and axial gradient echo or T2 fast spin echo through the cervical spine. COMPARISON: Correlation is made with overlapping portions of brain MRI 12/11/2019 FINDINGS: Image quality: Excellent. Alignment and Curvature: There is mild reversal of the normal cervical lordosis, with the apex at th e C4-C5 level. Bone Marrow: Marrow demonstrates normal overall signal. Spinal Cord: Visualized spinal cord has normal size and signal. No cerebellar tonsillar herniation. Paraspinous Soft Tissues: No paravertebral masses. Prevertebral soft tissues are normal in thicknes s. C2-C3: Normal in appearance. C3-C4: Normal in appearance. C4-C5: Normal in appearance. C5-C6: Normal in appearance. C6-C7: Normal in appearance. C7-T1: Normal in appearance. IMPRESSION: No cord signal abnormalities are seen. No significant disc pathology, neuroforaminal narrowing, or central canal narrowing can be seen. Reversal of the normal cervical lordosis is seen. This is commonly observed in patients with muscular spasm. Reviewed by: Wilbert Lr MD on 12/11/2019 5:19 PM HUI Approved by: Wilbert Lr MD on 12/11/2019 5:19 PM HUI Station ID: [id number]
== END 2019-12-11 15:29 | disposition home or self-care (01) ==
LOC: DI 15:28
PROVIDERS: ATTEND Physician Assistant
DX: R20.0 Anesthesia of skin (principal); M54.12 Radiculopathy, cervical region
CPT/HCPCS: 70553; 72141; A9585

== ENCOUNTER 2020-04-07 18:23 | Outpatient (CLI) | payer OTHER | END 2020-04-07 18:24 | disposition short-term general hospital (02) | LOC: EMS 18:23 | PROVIDERS: ATTEND Surgery | DX: R07.9 Chest pain, unspecified (principal) | CPT/HCPCS: A0425; A0427 ==

== ENCOUNTER 2020-04-15 08:00 | Outpatient (CLI) | payer OTHER ==
--- NOTE | 2020-04-15 16:08 | XRAY Report ---
PROCEDURE: Tib/Fib RT INDICATIONS: CONTUSION TO RIGHT LOWER LEG TECHNIQUE: 2 views of the tibia and fibula were acquired. COMPARISON: None FINDINGS: Bones: No fractures or dislocations. No suspicious bony lesions. Soft tissues: No suspicious soft tissue calcifications or masses. IMPRESSION: Normal examination, no underlying fracture is found. Reviewed by: Suman Roldan MD on 04/15/2020 4:06 PM PDT Approved by: Suman Roldan MD on 04/15/2020 4:06 PM PDT Station ID: [id number]
== END 2020-04-15 23:59 | disposition home or self-care (01) ==
LOC: DI.S 08:00
PROVIDERS: ATTEND Emergency Medicine
DX: S80.11XA Contusion of right lower leg, initial encounter (principal)

== ENCOUNTER 2020-06-02 14:14 | Outpatient (CLI) | payer OTHER | END 2020-06-02 14:15 | disposition EMS.NT | LOC: EMS 14:14 | PROVIDERS: ATTEND Surgery | DX: R53.1 Weakness (principal); H92.09 Otalgia, unspecified ear; R53.81 Other malaise ==

== ENCOUNTER 2020-06-21 03:40 | Emergency (ER) | payer OTHER ==
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
[2020-06-21 05:16] VITALS: BP 132/88
[2020-06-21 21:13] LABS: TRICHOMONAS VAGINALIS DNA NEGATIVE (NEGATIVE)
== END 2020-06-21 05:14 | disposition home or self-care (01) ==
LOC: ED 03:40
DX: T76.21XA Adult sexual abuse, suspected, initial encounter (principal); Z11.3 Encounter for screening for infections with a predominantly sexual mode of transmission
CPT/HCPCS: 87389; 87491; 87591; 87661; 99283

== ENCOUNTER 2020-09-03 16:13 | Outpatient (CLI) | payer OTHER | END 2020-09-03 16:14 | disposition critical access hospital (66) | LOC: EMS 16:13 | PROVIDERS: ATTEND Emergency Medicine | DX: R56.9 Unspecified convulsions (principal) | CPT/HCPCS: A0425; A0429 ==

== ENCOUNTER 2020-09-03 16:32 | Emergency (ER) | payer OTHER ==
[2020-09-03] MEDS ORDERED: SODIUM CHLORIDE 0.9% 1,000 ML IV STA (16:36)
[2020-09-03] MEDS ORDERED: LORazepam 2 MG/ML VIAL IVP STA ×2 (16:36→17:02)
--- NOTE | 2020-09-03 16:37 | ED Physician Documentation ---
History of Present Illness - Stated complaint Stated Complaint: POSS SEIZURE - History obtained from History obtained from: Patient, EMS - Additonal information Additional information: 25-year-old woman with history of anxiety presents after a potential seizure episode. She does not remember it, and we are waiting for the 's arrival for an accurate recollection of what happened but she passed out for a couple of minutes. Now feeling very anxious and nauseous. Presented by ambulance. Requesting Xanax on arrival. No possibility of . Her arrived around 4:50 PM and more history was obtained. She was in her usual state of health and then jerked and collapsed and had seizure-like activity with a postictal period. She is never had a seizure before. No recent medication changes. No alcohol or benzodiazepine withdrawal. She is on Wellbutrin which could be decreasing her seizure threshold. It is not new though. Review of Systems Constitutional: denies: Fever, Chills Cardiac: denies: Chest pain / pressure, Palpitations Respiratory: denies: Cough GI: reports: Nausea. 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 - Present Medications Home Medications: Ambulatory Orders Medication Instructions Recorded Confirmed buPROPion [Wellbutrin Xl] 200 mg PO DAILY 11/24/14 06/21/20 Diltiazem HCl [Diltiazem ER] 180 mg PO DAILY 01/17/19 06/21/20 DULoxetine [Cymbalta] 40 mg PO DAILY 06/21/20 06/21/20 - Allergies Allergies/Adverse Reactions: Allergies Allergy/AdvReac Type Severity Reaction Status Date / Time Sulfa (Sulfonamide Allergy Unknown Hives Verified 09/03/20 16:46 Antibiotics) ciprofloxacin Allergy Hives Verified 09/03/20 16:46 - Social History Does the pt smoke?: No Smoking Status: Never smoker Does the pt drink ETOH?: No Does the pt have substance abuse?: No - Immunizations Immunizations are current?: Yes - POLST Patient has POLST: No PD ED PE NORMAL - Vitals Vital signs reviewed: Yes - General General: Alert and oriented X 3, Other (She appears anxious and she is tachycardic) - HEENT HEENT: PERRL, EOMI - Neck Neck: Supple, no meningeal sign, No bony TTP - Cardiac Cardiac: RRR, No murmur - Respiratory Respiratory: No respiratory distress, Clear bilaterally - Abdomen Abdomen: Non tender - Back Back: No CVA TTP, No spinal TTP - Derm Derm: Normal color, Warm and dry - Neuro Neuro: Alert and oriented X 3, Normal speech Results - Vitals Vitals: Vital Signs - 24 hr 09/03/20 09/03/20 16:33 16:52 Temperature 36.4 C L 36.7 C Heart Rate 132 H 114 H Respiratory 20 15 Rate Blood Pressure 143/92 H 143/93 H O2 Saturation 100 100 Oxygen O2 Source Room air - EKG (time done) 1651 Rate: Rate (enter#) (113) Rhythm: Sinus tachycardia Gays: Normal Intervals: Normal MT. No: Prolonged QT QRS: Normal Ischemia: Non specific changes. No: ST elevation c/w ischemia, ST depression Computer interpretation: Agree with computer - Labs Labs: Laboratory Tests 09/03/20 09/03/20 09/03/20 16:44 16:44 16:44 WBC 10.0 RBC 3.66 L Hgb 13.4 Hct 39.3 MCV 107.4 H MCH 36.6 H MCHC 34.1 RDW 12.1 Plt Count 293 MPV 8.8 Neut # (Auto) 6.6 Lymph # (Auto) 2.2 [place] # (Auto) 0.7 Eos # (Auto) 0.3 Baso # (Auto) 0.1 Absolute Nucleated RBC 0.00 Nucleated RBC % 0.0 Sodium 137 Potassium 3.3 L Chloride 103 Carbon Dioxide 18 L Anion Gap 16.0 H BUN 7 Creatinine 0.8 Estimated GFR (MDRD) 88 L Glucose 175 H Calcium 9.5 TSH 2.07 Prolactin Ethyl Alcohol < 5.0 09/03/20 16:44 WBC RBC Hgb Hct MCV MCH MCHC RDW Plt Count MPV Neut # (Auto) Lymph # (Auto) [place] # (Auto) Eos # (Auto) Baso # (Auto) Absolute Nucleated RBC Nucleated RBC % Sodium Potassium Chloride Carbon Dioxide Anion Gap BUN Creatinine Estimated GFR (MDRD) Glucose Calcium TSH Prolactin 15.07 Ethyl Alcohol - Rads (name of study) CT Head Radiology: EMP read contemporaneously (NAD) PD MEDICAL DECISION MAKING - ED course ED course: 25-year-old woman with what sounds like a new onset seizure. She is on multiple psychiatric medications which might be causative, but most likely would be bupr opion and recommended she cut the dose in half pending follow-up. She has significant trouble with anxiety here and was given a couple of doses of Ativan. Work-up was otherwise negative/as expected with mild acidosis from the seizure. Discussed the need to not drive until cleared or 6 months seizure-free has passed. Departure - Departure Disposition: 01 Home, Self Care Clinical Impression: Seizure Condition: Stable Record reviewed to determine appropriate education?: Yes Instructions: ED Seizure New Onset Unk Cause Follow-Up: Isela Saenz PA-C [Provider Admit Priv/Credential] - Comments: As discussed, per state law you cannot legally drive for 6 months or until cleared by neurologist. You should also avoid other activities that would be dangerous would you seizure again such as ladders and swimming. Wellbutrin can decrease the seizure threshold and I would recommend cutting her dose in half until you follow-up with both your psychiatrist and a neurologist. Please copy records to Zheng CRUZ at [facility], thanks
[2020-09-03] MEDS ORDERED: ONDANSETRON 4 MG/2 ML VIAL IVP STA (16:45)
[2020-09-03 16:48] LABS: BASOPHILS # (AUTO) 0.1 10^3/uL (0.0-0.1); EOSINOPHILS # (AUTO) 0.3 10^3/uL (0.0-0.7); EOSINOPHILS % (AUTO) 3.2 %; HCT - HEMATOCRIT 39.3 % (37.0-47.0); HGB - HEMOGLOBIN 13.4 g/dL (12.0-16.0); LYMPHOCYTES # (AUTO) 2.2 10^3/uL (1.5-3.5); LYMPHOCYTES % (AUTO) 22.3 %; MEAN CORPUSCULAR HEMOGLOBIN 36.6 pg (27.0-31.0); MEAN CORPUSCULAR HGB CONC 34.1 g/dL (32.0-36.0); MEAN CORPUSCULAR VOLUME 107.4 fL (81.0-99.0); MEAN PLATELET VOLUME 8.8 fL (7.9-10.8); MONOCYTES # (AUTO) 0.7 10^3/uL (0.0-1.0); MONOCYTES % (AUTO) 6.9 %; NEUTROPHILS # (AUTO) 6.6 10^3/uL (1.5-6.6); NEUTROPHILS % (AUTO) 65.9 %; PLT - PLATELET COUNT 293 10^3/uL (130-450); RED BLOOD COUNT 3.66 10^6/uL (4.20-5.40); RED CELL DISTRIBUTION WIDTH 12.1 % (12.0-15.0)
[2020-09-03 16:53] VITALS: BP 143/93
[2020-09-03] MEDS ORDERED: ONDANSETRON 4 MG/2 ML VIAL ONE (16:58)
[2020-09-03 17:02] LABS: BUN - BLOOD UREA NITROGEN 7 mg/dL (6-20); CALCIUM 9.5 mg/dL (8.5-10.3); CARBON DIOXIDE - CO2 18 mmol/L (21-32); CHLORIDE 103 mmol/L (101-111); CREATININE 0.8 mg/dL (0.4-1.0); ETOH - ETHANOL < 5.0 mg/dL; GFR - MDRD 88 (>89); GLUCOSE 175 mg/dL (70-100); POTASSIUM 3.3 mmol/L (3.5-5.0); SODIUM 137 mmol/L (135-145)
--- NOTE | 2020-09-03 17:41 | CT Report ---
PROCEDURE: HEAD WO INDICATIONS: seizure TECHNIQUE: Noncontrast 4.5 mm thick angled axial sections acquired from the foramen magnum to the vertex. For r adiation dose reduction, the following was used: automated exposure control, adjustment of mA and/or kV according to patient size. COMPARISON: None. FINDINGS: Image quality: Excellent. CSF spaces: Basal cisterns are patent. No extra-axial fluid collections. Ventricles are normal in size and shape. Brain: No midline shift. No intracranial masses or hemorrhage. Correa-white matter interface is norm al. Skull and face: Calvarium and visualized facial bones are intact, without suspicious lesions. Sinuses: Visualized sinuses and mastoids are clear but only partially visualized in this patient who is angled in the head CT duncan for CT scanning.. Note is made of what appears to be long-standing rightward deviation of the midline nasal septum, likely congenital. IMPRESSION: No trauma found. The study only partially includes the facial bones superiorly and if fa cial trauma is clinically suspected follow-up by dedicated facial CT should be obtained. Rightward de viation of the midline nasal septum. Reviewed by: Suman Roldan MD on 09/03/2020 4:40 PM [place] Approved by: Suman Roldan MD on 09/03/2020 4:40 PM [facility] Station ID: [id number]
[2020-09-03] MEDS ORDERED: HYDROcod/ACETAM 5/325 MG TABLET PO STA (17:54)
== END 2020-09-03 18:08 | disposition home or self-care (01) ==
LOC: EDUNIT# → ED 16:32
DX: R56.9 Unspecified convulsions (principal); F41.9 Anxiety disorder, unspecified; R00.0 Tachycardia, unspecified; I10 Essential (primary) hypertension
CPT/HCPCS: 36415; 70450; 80048; 80320; 84146; 84443; 85025; 93005; 96361; 96374; 96375; 99284; A9270; J2060

== ENCOUNTER 2021-01-12 14:47 | Outpatient (CLI) | payer OTHER | END 2021-01-12 14:48 | disposition critical access hospital (66) | LOC: EMS 14:47 | DX: F41.0 Panic disorder [episodic paroxysmal anxiety] (principal); R07.9 Chest pain, unspecified | CPT/HCPCS: A0425; A0429 ==

== ENCOUNTER 2021-01-12 15:19 | Emergency (ER) | payer OTHER ==
--- NOTE | 2021-01-12 15:26 | ED Physician Documentation ---
PD HPI MHE - Stated complaint Stated Complaint: ANXIETY ATTACK - History obtained from History obtained from: Patient - History of Present Illness Primary symptom: Anxiety. No: Suicidal ideation, Off meds, Out of meds Timing - onset: Today Contributing factors: Other (no noted trigger, but felt anxiety/panic onset today with shaky, nausea, and fast heart rate. Feels similar to prior panic attacks.). No: Family, Substance abuse - drugs, Off meds Similar symptoms before: Diagnosis (panic disorder. Has baseline tachycardia and has seen patents examiner without heat structural abnormality. On DIltiazema nd had netoprolol added 2-3 weeks ago.) Recently seen: Emergency Dept (2-3 weeks ago at [facility] ER for similar and treated with Ativan and had Metoprolol added.) Review of Systems Constitutional: denies: Fever, Chills Nose: denies: Rhinorrhea / runny nose, Congestion Throat: denies: Sore throat Cardiac: reports: Chest pain / pressure, Palpitations (feels heart is going fast.). denies: Pedal edema, Calf pain Respiratory: denies: Cough PD PAST MEDICAL HISTORY - Past Medical History Cardiovascular: Hypertension, Arrhythmia (tachycardia. 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 - Present Medications Home Medications: Ambulatory Orders Medication Instructions Recorded Confirmed buPROPion [Wellbutrin Xl] 200 mg PO DAILY 11/24/14 06/21/20 Diltiazem HCl [Diltiazem ER] 180 mg PO DAILY 01/17/19 06/21/20 DULoxetine [Cymbalta] 40 mg PO DAILY 06/21/20 06/21/20 LORazepam [Ativan] 1 mg PO BID PRN #12 tablet 01/12/21 - Allergies Allergies/Adverse Reactions: Allergies Allergy/AdvReac Type Severity Reaction Status Date / Time Sulfa (Sulfonamide Allergy Unknown Hives Verified 01/12/21 15:36 Antibiotics) ciprofloxacin Allergy Hives Verified 01/12/21 15:36 - Social History Does the pt smoke?: No Smoking Status: Never smoker Does the pt drink ETOH?: No Does the pt have substance abuse?: No - Immunizations Immunizations are current?: Yes - POLST Patient has POLST: No PD ED PE NORMAL - Vitals Vital signs reviewed: Yes - General General: Alert and oriented X 3, Well developed/nourished - HEENT HEENT: Pharynx benign - Neck Neck: Supple, no meningeal sign, No adenopathy - Cardiac Cardiac: No: RRR (tchycardic but regular) - Respiratory Respiratory: Clear bilaterally - Abdomen Abdomen: Soft, Non tender - Derm Derm: Normal color, Warm and dry, Other (small patch of dried scaly skin right forehead without signs infection, is about 2 cm diameter. ) - Extremities Extremities: No edema, No calf tenderness / cord - Neuro Neuro: Alert and oriented X 3, No motor deficit, Normal speech, Other (anxious but pleasant) Results - Vitals Vitals: Oxygen O2 Source Room air - Labs Labs: Laboratory Tests 01/12/21 01/12/21 15:52 15:52 Sodium 137 Potassium 3.8 Chloride 98 L Carbon Dioxide 25 Anion Gap 14.0 H BUN 10 Creatinine 0.7 Estimated GFR (MDRD) 103 Glucose 114 H Calcium 10.0 Magnesium 1.9 Total Bilirubin 1.1 H AST 75 H ALT 49 Alkaline Phosphatase 133 H Total Protein 9.4 H Albumin 5.4 Globulin 4.0 Albumin/Globulin Ratio 1.4 Lipase 34 TSH 1.64 PD MEDICAL DECISION MAKING - ED course Complexity details: reviewed results, re-evaluated patient (improved with meds), considered differential, d/w patient Departure - Departure Disposition: 01 Home, Self Care Clinical Impression: Panic attack, Regular sinus tachycardia Condition: Stable Record reviewed to determine appropriate education?: Yes Instructions: ED Panic Attack Follow-Up: Isela Saenz PA-C [Primary Care Provider] - Prescriptions: LORazepam [Ativan] 1 mg PO BID PRN #12 tablet PRN Reason: Anxiety Comments: New with usual medications. Stay well-hydrated. Return if needed. Add Lorazepam twice daily if needed for painic attacks (not to take regularly but just as needed). Discharge Date/Time: 01/12/21 17:57
[2021-01-12] MEDS ORDERED: SODIUM CHLORIDE 0.9% 1,000 ML IV STA (15:42)
[2021-01-12] MEDS ORDERED: METOPROLOL 5 MG/5 ML VIAL IVP STA ×2 (15:43→17:03)
[2021-01-12] MEDS ORDERED: LORazepam 2 MG/ML VIAL IVP STA ×2 (15:43→17:03)
[2021-01-12 16:15] LABS: ALBUMIN 5.4 g/dL (3.2-5.5); ALBUMIN/GLOBULIN RATIO 1.4 (1.0-2.2); BILIRUBIN,TOTAL 1.1 mg/dL (0.2-1.0); CREATININE 0.7 mg/dL (0.4-1.0); MAGNESIUM 1.9 mg/dL (1.7-2.8); POTASSIUM 3.8 mmol/L (3.5-5.0); TOTAL PROTEIN 9.4 g/dL (6.7-8.2)
[2021-01-12 17:57] VITALS: BP 135/82
== END 2021-01-12 17:57 | disposition home or self-care (01) ==
LOC: EDUNIT# → ED 15:19
DX: F41.0 Panic disorder [episodic paroxysmal anxiety] (principal); I10 Essential (primary) hypertension
CPT/HCPCS: 36415; 80053; 83690; 83735; 84443; 96374; 96375; 96376; 99283; 99284; J2060

== ENCOUNTER 2022-06-19 23:24 | Outpatient (CLI) | payer SELFPAY | END 2022-06-19 23:25 | disposition EMS.NT | LOC: EMS 23:24 | DX: R07.89 Other chest pain (principal); R00.0 Tachycardia, unspecified; I10 Essential (primary) hypertension; F41.0 Panic disorder [episodic paroxysmal anxiety] ==